=== PATIENT | male | born 1980 | race Caucasian/White ===

== ENCOUNTER → 2020-08-16 10:03 | Outpatient (CLI) | payer OTHER, SELFPAY ==
[2020-08-16 10:44] LABS: Basophils # 0.1 K/mm3 (0-0.2); Basophils % 0.8 % (0.1-2.0); Eosinophils # 0.7 K/mm3 (0.0-0.4); Eosinophils % 7.5 % (0.1-12.0); Hematocrit 35.9 % (42.0-52.0); Hemoglobin 11.5 g/dL (14.1-18.0); Lymphocytes # 2.4 K/mm3 (0.7-4.5); Lymphocytes % 26.1 % (10-50); Mean Corpuscular HGB Conc 32.2 g/dL (31.8-35.4); Mean Corpuscular Volume 77.9 fl (80-94); Mean Platelet Volume 7.4 fl (7.4-10.4); Monocytes # 0.6 K/mm3 (0.1-1.0); Neutrophils # 5.5 K/mm3 (1.8-7.8); Neutrophils % 59.6 % (37.0-80.0); Platelet Count 338 K/mm3 (142-424); Red Blood Count 4.61 M/mm3 (4.60-6.20); Red Cell Distribution Width 14.4 % (11.5-17.5); White Blood Count 9.2 K/mm3 (4.8-10.8)
[2020-08-16 11:15] LABS: Alanine Aminotransferase 31 U/L (12-78); Albumin/Globulin Ratio 1.3 (1.1-1.8); Alkaline Phosphatase 68 U/L (38-126); Anion Gap 12.4 mEq/L (5-15); Aspartate Amino Transferase 27 U/L (17-59); Bilirubin,Total 0.9 mg/dl (0.2-1.3); Blood Urea Nitrogen 15 mg/dl (9-20); Calcium 9.1 mg/dl (8.4-10.2); Carbon Dioxide 31 mmol/L (22.0-30.0); Chloride 96 mmol/L (98-107); Chol/HDL Ratio 3.8 (1-3.5); Cholesterol 152 mg/dl (140-200); Estimated Glomerular Filt Rate 149 ml/min (>60); GFR (African American) 181 ML/MIN (>60); Glucose 187 mg/dl (74-100); HDL Cholesterol 40 mg/dl (40-60); Potassium 4.4 mmoL/L (3.5-5.1); Sodium 135 mmol/L (136-145); Triglycerides 91 mg/dl (30-150); VLDL Cholesterol 18 mg/dL (0-40)
[2020-08-16 11:26] LABS: Direct LDL Cholesterol 83.96 mg/dL (100-129)
[2020-08-16 11:33] LABS: 25-OH Vitamin D, Total 27.4 ng/mL (30-100); T4 (Thyroxine) 6.2 ug/dl (5.53-11.0)
[2020-08-16 11:46] LABS: Thyroid Stimulating Hormone 5.74 uIU/mL (0.465-4.68)
[2020-08-16 15:52] LABS: Hemoglobin A1C 10.4 % (4.0-6.0)
[2020-08-23 16:41] LABS: Testosterone, Total, LC/MS 307.6 ng/dL (264.0-916.0); Testosterone,Free 13.2 pg/mL (6.8-21.5)
== END ==
PROVIDERS: Visit Provider Nurse Practitioner Family
DX: E11.42 Type 2 diabetes mellitus with diabetic polyneuropathy (principal); K59.00 Constipation, unspecified; E66.9 Obesity, unspecified; Z68.41 Body mass index [BMI] 40.0-44.9, adult; Z79.4 Long term (current) use of insulin; Z12.5 Encounter for screening for malignant neoplasm of prostate
CPT/HCPCS: 36415; 80053; 80061; 82306; 83036; 84402; 84403; 84436; 84443; 85025

== ENCOUNTER 2020-09-15 10:42 | Emergency (ER) | payer OTHER, SELFPAY ==
[2020-09-15 10:44] VITALS: BP 152/85; PULSE 101; RESP 18; TEMP 36.9; O2SAT 100; BMI 42.5
[2020-09-15 11:10] LABS: Basophils # 0.1 K/mm3 (0-0.2); Basophils % 0.5 % (0.1-2.0); Eosinophils # 0.6 K/mm3 (0.0-0.4); Eosinophils % 5.4 % (0.1-12.0); Hematocrit 33.1 % (42.0-52.0); Hemoglobin 10.5 g/dL (14.1-18.0); Lymphocytes # 2.7 K/mm3 (0.7-4.5); Lymphocytes % 24.2 % (10-50); Mean Corpuscular HGB Conc 31.7 g/dL (31.8-35.4); Mean Corpuscular Hemoglobin 24.8 pg (27.0-31.2); Mean Corpuscular Volume 78.5 fl (80-94); Mean Platelet Volume 8.8 fl (7.4-10.4); Monocytes # 0.9 K/mm3 (0.1-1.0); Monocytes % 7.7 % (1.7-9.3); Neutrophils % 62.2 % (37.0-80.0); Platelet Count 455 K/mm3 (142-424); Red Blood Count 4.22 M/mm3 (4.60-6.20); Red Cell Distribution Width 15.5 % (11.5-17.5); White Blood Count 11.3 K/mm3 (4.8-10.8)
[2020-09-15 11:13] LABS: POC Glucose,Bedside 74 (70-110)
[2020-09-15 11:15] LABS: Chloride 106 mmol/L (98-107); Potassium 4.5 mmoL/L (3.5-5.1); Sodium 136 mmol/L (136-145)
[2020-09-15 11:18] LABS: Alanine Aminotransferase 34 U/L (12-78); Albumin Level 4.1 g/dl (3.5-5.0); Albumin/Globulin Ratio 1.4 (1.1-1.8); Alkaline Phosphatase 56 U/L (38-126); Anion Gap 11.5 mEq/L (5-15); Aspartate Amino Transferase 41 U/L (17-59); Bilirubin,Total 0.4 mg/dl (0.2-1.3); Blood Urea Nitrogen 14 mg/dl (9-20); Carbon Dioxide 23 mmol/L (22.0-30.0); Creatinine Clearance Estimated 190 mL/min (50-200); Estimated Glomerular Filt Rate 184 ml/min (>60); GFR (African American) 223 ML/MIN (>60); Total Protein,Serum 7.1 g/dl (6.3-8.2)
[2020-09-15 11:20] LABS: Glucose 50 mg/dl (74-100)
--- NOTE | 2020-09-15 11:20 | PC.NURSE ---
critical BG at 50 from Lab. patient given juice and eder crackers at this time
--- NOTE | 2020-09-15 11:24 | PC.NURSE ---
Pt drinking orange juice and eating peanut butter and eder crackers at this time.
[2020-09-15 11:27] LABS: Microscopic, Urine URINE MICROSCOPIC (MICROSCOPIC)
[2020-09-15 11:28] LABS: Appearance,Urine CLEAR (Clear); Bilirubin,Urine Negative (Negative); Blood, Urine Negative (Negative); Color,Urine YELLOW (Yellow); Glucose,Urine (UA) Negative (Negative); Ketones,Urine Negative (Negative); Leukocyte Esterase,Urine Negative (Negative); Nitrate,Urine Negative (Negative); PH,Urine 5.5 (5.0-8.5); Protein,Urine Negative (Negative); Specific Gravity, Urine 1.015 (1.005-1.030); Urobilinogen,Urine 0.2 EU/dl (0.2)
[2020-09-15 11:38] LABS: Squamous Epithelial Cell,Urine Occasional #/hpf (0-5)
--- NOTE | 2020-09-15 12:25 | HMH.EDGENADL ---
ED Disposition Clinical Impression: Hypoglycemia Disposition: Home, Self-Care Condition on Discharge: Good Instructions: DI for Hyperglycemia -- Adult Additional Instructions: Routine home medications as directed. PCP on Thursday. Return to the emergency department for recurrent episodes of hypoglycemia. Referrals: Joss Posada APRN [Primary Care Provider] - 3 days Time of Disposition: 12:29 - Critical Care Critical Care Time: No Attestation: On 09/15/20, the high probability of a clinically significant, sudden or life threatening deterioration of the following system(s) required my full and direct attention, intervention and personal management. The time I documented below is in addition to time spent performing reported procedures but includes the following listed in this critical care notation. Medical Decision Making - Medical Records Medical records reviewed: Yes: I reviewed the patient's medical records. - Mihir Inquiry Pt receiving controlled substance: No Vital Signs: 09/15/20 10:44 Temperature 98.4 F Temperature Source Oral Pulse Rate [Right Radial] 101 H Respiratory Rate 18 Blood Pressure [Right Arm] 152/85 H Blood Pressure Mean [Right Arm] 107 Blood Pressure Source [Right Arm] Automatic Cuff Blood Pressure Position [Right Arm] Sitting 02 Sat by Pulse Oximetry 100 Oxygen Delivery Method Room Air - Lab Data Lab results reviewed: Yes: I reviewed the patient's lab results. Lab Results 09/15/20 11:00: WBC 11.3 H, RBC 4.22 L, Hgb 10.5 L, Hct 33.1 L, MCV 78.5 L, MCH 24.8 L, MCHC 31.7 L, RDW 15.5, Plt Count 455 H, MPV 8.8, Neut % (Auto) 62.2, Lymph % (Auto) 24.2, [place] % (Auto) 7.7, Eos % (Auto) 5.4, Baso % (Auto) 0.5, Neut # (Auto) 7.0, Lymph # (Auto) 2.7, Jasper # (Auto) 0.9, Eos # (Auto) 0.6 H, Baso # (Auto) 0.1 09/15/20 11:00: Sodium 136, Potassium 4.5, Chloride 106, Carbon Dioxide 23, Anion Gap 11.5, BUN 14, Creatinine 0.50 L, Estimated Creat Clear 190, Estimated GFR 184, Est GFR ( Amer) 223, Glucose 50 L, Calcium 8.0 L, Total Bilirubin 0.4, AST 41, ALT 34, Alkaline Phosphatase 56, Total Protein 7.1, Albumin 4.1, Globulin 3.0, Albumin/Globulin Ratio 1.4 09/15/20 11:02: POC Glucose 74 09/15/20 11:20: Urine Color Yellow, Urine Appearance Clear, Urine pH 5.5, Ur Specific [place] 1.015, Urine Protein Negative, Urine Glucose (UA) Negative, Urine Ketones Negative, Urine Blood Negative, Urine Nitrate Negative, Urine Bilirubin Negative, Urine Urobilinogen 0.2, Ur Leukocyte Esterase Negative, Urine RBC None, Urine WBC 3-5, Ur Squamous Epith Cells Occasional, Urine Bacteria None Result diagrams: 09/15/20 11:00 09/15/20 11:00 Medical Decision Narrative: 39yo M evaluated for hypoglycemia. Patient's blood glucose is currently in the 50s. He is tolerating it well. He is eating and drinking trying to improve his blood sugar. We will continue to monitor. Patient reports his blood sugar is now up to 70. He continues to eat peanut butter crackers. Patient's blood glucose is now greater than 90. He feels well. We will continue to monitor without additional p.o. intake to ensure his blood glucose stays at a reasonable level. 30 minutes later the patient's glucose is 100. This is without any additional p.o. intake. He is appropriate for discharge home at this time. General Adult HPI - General Chief complaint: Hyper/Hypoglycemia Stated complaint: low glucose 6+hrs Time Seen by Provider: 09/15/20 10:50 Mode of Arrival: Ambulatory Limitations: No Limitations Description of Symptoms (Recalled from ER Triage Doc. by RN): Pt c/o persistent hypoglycemia x8 hours despite efforts made to raise it - History of Present Illness HPI narrative: 39yo M type I diabetic presents emergency department secondary to hypoglycemia. Patient reports doing his usual insulin regiment last night but woke up early this morning with signs of hypoglycemia. Patient has a [employer] cutaneous meter. He reported his blood sugar wa
[2020-09-15 13:17] VITALS: BP 116/77; PULSE 98; RESP 18; TEMP 36.8; O2SAT 98
== END 2020-09-15 13:22 | disposition home or self-care (01) ==
PROVIDERS: Emergency Provider Family Medicine; PCP Nurse Practitioner Family
DX: E10.649 Type 1 diabetes mellitus with hypoglycemia without coma (principal); F41.8 Other specified anxiety disorders; I10 Essential (primary) hypertension; J45.909 Unspecified asthma, uncomplicated; Z79.899 Other long term (current) drug therapy
CPT/HCPCS: 80053; 81001; 82962; 85025; 99282

== ENCOUNTER → 2020-10-19 09:50 | Outpatient (CLI) | payer SELFPAY ==
--- NOTE | 2020-10-19 10:44 | CT_ITS ---
PROCEDURE: CT HEART W CALCIUM SCORE CLINICAL HISTORY: eval for cad COMPARISON: No exams were available for comparison TECHNIQUE: Axial images obtained with sagittal and coronal reformats. All CT scans at the facility use one or more dose reduction, viz: automated exposure control, ma/kV adjustment per patient size (including targeted exams where dose is matched to indication, i.e. head), or iterative reconstruction technique. FINDINGS: Total coronary artery calcium score is 0. No identifiable calcific atherosclerotic plaque with very low cardiovascular disease risk. Nonspecific four mm nodular opacity in the lingula. Twelve month follow-up suggested. IMPRESSION: No identifiable calcific atherosclerotic plaque with very low cardiovascular disease risk Nonspecific 4 mm nodular opacity of the lingula. Suggest 12 month follow-up Dictated by: Gregory Espino MD 10/22/2020 08:39 Gregory Espino MD in [facility] 10/22/2020 08:39
--- NOTE | 2020-10-19 10:44 | NM_ITS ---
APPROVED REPORT Exam: Nuclear Stress Test Indication: OBESITY, HTN, D.M., HYPERLIPEDEMIA, FM HX, SOB Patient Location: Outpatient Stress Tech: Christina Lara DC Tech:Marilee Vicente, ARRT RT (R)(N)(M) Ht: 5 ft 8 in Wt: 290 lbs HR: 89 bpm BP: 152/86 mmHg BSA: 2.39 m2 BMI: 44.0 History: OBESITY, HTN, D.M., HYPERLIPEDEMIA, FM HX, SOB Procedure: Patient received a 0.4 mg of intravenous Lexiscan, resting heart rate 89 bpm, resting blood pressure 152/86 mmHg, with Lexiscan maximum heart rate achived was 107 bpm which is Less than 85 % of the maximum predicted heart rate and blood pressure was 117/56 mmHg. With Lexiscan, patient denied any complaint of chest pain. Electrocardiogram Resting electrocardiogram showed sinus rhythm, with Lexiscan there is less than 1.[address] segment depression noted from the baseline EKG. The EKG portion of the Lexiscan is nondiagnostic. Cardiac Stress and Resting SPECT Images: Cardiac Stress and Resting SPECT images were obtained using technetium 99m Myoview 31.2 mCi stress and 10.47 mCi at rest. Gated SPECT for analysis of segmental wall motion and calculation of the ejection fraction also done. Prone images were also obtained. Cardiac stress and rest SPECT images show uniform myocardial activity without segmental perfusion abnormality, computer derived ejection fraction is 55% with no regional wall motion abnormality, right ventricle is normal size and contractility. Conclusion: 1. The EKG portion of the Lexiscan is nondiagnostic. 2. No scintigraphic evidence of reversible ischemia seen, computer derived ejection fraction is 55% with no regional wall motion abnormality, right ventricle is normal size and contractility. 3. Normal Lexiscan Myoview study. Electronically signed by : Judd Zavala MD 10/19/2020 19:46:32
== END ==
PROVIDERS: PCP Emergency Medicine; Visit Provider Internal Medicine Cardiovascular Disease
DX: Z13.6 Encounter for screening for cardiovascular disorders (principal)
CPT/HCPCS: 75571; 78452; A9502; J2785

== ENCOUNTER → 2020-10-19 09:59 | Outpatient (CLI) | payer OTHER, SELFPAY ==
--- NOTE | 2020-10-19 | CA_ITS ---
APPROVED REPORT Exam: Exercise Treadmill Technologist: Christina Lara, Ht: 5 ft 8 in Wt: 299 lbs BSA: 2.42 m2 HR: 89 bpm BP: 152/86 mmHg Indications: CAD Medical History Medications: Albuterol, Gabapentin, Insulsin, Lisinopril, Pravastatin. Allergies: Peaches, Green peppers Cardiac Risk Factors: HTN, Hyperlipidemia, Diabetes (insulin), FHX of CAD Stress Test Details Test: LEXISCAN HR Resting HR: 96 bpm Max Heart Rate (APMHR): 179.844184 bpm Max HR Achieved: 114 bpm Target HR (85% APMHR): 152.216124 bpm % of APMHR: 63.69 Recovery HR: 104 bpm BP Resting BP: 152.0/86.0 mmHg Max BP: 117/56 mmHg Recovery BP: 115.0/61.0 mmHg ECG Resting ECG: Sinus rhythm with PVC Clinical Exercise duration: 04:03 min Highest Stage Achieved: Exercise capacity: 1.0 METs Stress ECG Conclusion Patient changes from Jack to Lexiscan due to leg pain. Patient c/o SOB at peak infusion which resolved during recovery. No chest pain. Occ PVC. Less than 1.5mm ST depression. Images to follow. Electronically signed by : Judd Zavala MD 10/19/2020 19:38:49
--- NOTE | 2020-10-19 10:00 | CA_ITS ---
APPROVED REPORT EXAM: Comprehensive 2D, Doppler, and color-flow Echocardiogram Corrugator Supervisor: Isela Khanna RT(R) Ht: 5 ft 8 in Wt: 299lbs BSA: 2.42 BP: 147/82 mmHg Indications: edema, HTN, DM, SOB, hyperlipidemia 2D Dimensions LVOT 2.14 cm (M/F) 1.5-2.5 LA Volume 47.10 mL LA Volume Index 19.46 mL/m2 (M/F) 16-34 M-Mode Dimensions RVDd 3.73 cm (0.9-2.6) LA Diam 3.88 cm (1.9-4.0) LVDd 4.11 cm (3.5-5.7) Ao Diam 2.90 cm (2.0-3.7) LVDs 3.05 cm (3.5-5.7) IVSd 0.93 cm (0.6-1.1) PWd 0.89 cm (0.6-1.1) EF (Teich) 51.30% FS 25.80% EDV (Teich) 74.70 mL ESV (Teich) 36.40 mL LV Diastology E Decel Time 173.00 (160-240 msec) E/A Ratio 1.2 MED E' 16.10 (< 7 cm/sec) E'/MED E' Ratio 7.37 (>14) LAT E' 8.60 (<10 cm/sec) E/LAT E' Ratio 13.80 (>14) Mitral Valve MV E Max Odilon. 119.00 (40-130 cm/s) MV A Velocity 99.00 (40-130 cm/s) E/A Ratio 1.20 MV Decel. Time 173.00 (160-240 ms) MV PHT 51.00 ms Left Ventricle Left atrium is mildly enlarged, left ventricle is normal size, mild concentric left ventricular hypertrophy, visually estimated ejection fraction 55% with no regional wall motion abnormality, diastolic parameters are inconclusive. Right Ventricle Right atrium and right ventricle mildly enlarged with normal contractility. Aortic Valve Aortic valve is grossly normal, there is no aortic stenosis or aortic insufficiency. Mitral Valve Mitral valve is grossly normal, there is trace mitral regurgitation. Tricuspid Valve Tricuspid grossly normal, there is trace tricuspid regurgitation, tricuspid regurgitation jet velocity is inadequate for calculation of the right ventricular systolic pressure. Pulmonic Valve Pulmonic valve is poorly visualized Great Vessels Aortic root is normal size. Is not well-visualized. Pericardium No significant pericardial effusion noted. Conclusion 1. Normal left ventricular size, preserved left ventricular systolic function, visually estimated ejection fraction 55% with no regional wall motion abnormality. Diastolic parameters are inconclusive. 2. Trace mitral and tricuspid regurgitation. 3. No significant pericardial effusion noted. Electronically signed by : Judd Zavala MD 10/19/2020 11:27:37
--- NOTE | 2020-10-19 10:00 | US_ITS ---
APPROVED REPORT Exam Type: Ankle to Brachial Index Ceo And Co Founder: Isela Khanna RT(R) Indications Rest Pain: Bilaterally Redness and edema bilateral LE. Risk Factors Hypertension Hyperlipidemia Obesity Diabetes Pressures/Indices Right Indices Left Indices Brachial 144.00 mmHg Brachial 157.00 mmHg Low Thigh 218.00 mmHg 1.39 Low Thigh 191.00 mmHg 1.22 Calf 188.00 mmHg 1.20 Calf 198.00 mmHg 1.26 Ankle(PT) 0.00 mmHg 0.00 Ankle(PT) 0.00 mmHg 0.00 Ankle(DP) 169.00 mmHg 1.08 Ankle(DP) 0.00 mmHg 0.00 Digit 155.00 mmHg 0.99 Digit 162.00 mmHg 1.03 Findings RT GEORGINA=1.08 LT GEORGINA=1.26 RT TBI=0.99 LT TBI=1.03 Normal waveforms Normal pulses Non compressible vessels seen at the Right PT ankle level, left DP ankle level, and left PT ankle level. Conclusion RT GEORGINA=1.08 LT GEORGINA=1.26 RT TBI=0.99 LT TBI=1.03 Normal waveforms Normal pulses Normal ABIs Non compressible vessels seen at the Right PT ankle level, left DP ankle level, and left PT ankle level. 13 pt difference in arm pressures which may indicate RUE , brachiocephalic, or subclavian stenosis Electronically signed by : Gregory Espino MD 10/23/2020 16:23:06
== END ==
PROVIDERS: PCP Nurse Practitioner Family; Visit Provider Internal Medicine Cardiovascular Disease
DX: R06.09 Other forms of dyspnea (principal); R60.0 Localized edema; I10 Essential (primary) hypertension; E10.59 Type 1 diabetes mellitus with other circulatory complications; E78.5 Hyperlipidemia, unspecified; Z82.49 Family history of ischemic heart disease and other diseases of the circulatory system; Z79.4 Long term (current) use of insulin
CPT/HCPCS: 78452; 93017; 93306; 93923; A9502; J2785

== ENCOUNTER → 2020-10-24 13:41 | Outpatient (CLI) | payer OTHER, SELFPAY | PROVIDERS: Visit Provider Nurse Practitioner Family | DX: N39.0 Urinary tract infection, site not specified (principal) | CPT/HCPCS: 87086 ==

== ENCOUNTER → 2020-10-26 10:09 | Outpatient (CLI) | payer OTHER, SELFPAY ==
[2020-10-26 10:56] LABS: Chloride 101 mmol/L (98-107); Potassium 5.1 mmoL/L (3.5-5.1); Sodium 138 mmol/L (136-145)
[2020-10-26 10:59] LABS: Anion Gap 13.1 mEq/L (5-15); Blood Urea Nitrogen 14 mg/dl (9-20); Carbon Dioxide 29 mmol/L (22.0-30.0); Estimated Glomerular Filt Rate 148 ml/min (>60); GFR (African American) 180 ML/MIN (>60)
[2020-10-26 11:00] LABS: Calcium 8.8 mg/dl (8.4-10.2); Glucose 97 mg/dl (74-100)
[2020-10-26 11:09] LABS: NT Pro Brain Natriuretic Pep. 142 pg/mL (0-125)
== END ==
PROVIDERS: PCP Nurse Practitioner Family; Visit Provider Internal Medicine Cardiovascular Disease
DX: R06.02 Shortness of breath (principal); E10.59 Type 1 diabetes mellitus with other circulatory complications; E78.5 Hyperlipidemia, unspecified; I10 Essential (primary) hypertension; R60.0 Localized edema; Z82.49 Family history of ischemic heart disease and other diseases of the circulatory system; Z79.4 Long term (current) use of insulin
CPT/HCPCS: 36415; 80048; 83880

== ENCOUNTER → 2020-11-02 14:36 | Outpatient (CLI) | payer OTHER, SELFPAY ==
[2020-11-02 15:26] LABS: Amphetamine/Metha Screen,Urine Negative ng/ml (<1000); Benzodiazepines Screen,Urine Negative ng/ml (<200)
[2020-11-02 15:27] LABS: Barbiturates Screen,Urine Negative ng/ml (<200)
[2020-11-02 15:28] LABS: Cannabinoid Screen,Urine Negative ng/ml (<50); Cocaine Screen,Urine Negative ng/ml (<300)
[2020-11-02 15:29] LABS: Methadone Screen,Urine Negative ng/ml (<300)
[2020-11-02 15:30] LABS: Opiate Screen,Urine Negative ng/ml (<300); Phencyclidine Screen,Urine Negative ng/ml (<25)
== END ==
PROVIDERS: Visit Provider Nurse Practitioner Family
DX: G62.9 Polyneuropathy, unspecified (principal)
CPT/HCPCS: 80305

== ENCOUNTER → 2020-11-23 13:37 | Outpatient (CLI) | payer OTHER, SELFPAY | PROVIDERS: PCP Nurse Practitioner Family; Visit Provider Internal Medicine Cardiovascular Disease | DX: R40.0 Somnolence (principal); R06.83 Snoring; G47.30 Sleep apnea, unspecified | CPT/HCPCS: 95806 ==

== ENCOUNTER → 2021-04-17 18:13 | Outpatient (CLI) | payer OTHER, SELFPAY ==
[2021-04-17 15:48] LABS: Basophils # 0.1 K/mm3 (0-0.2); Basophils % 0.9 % (0.1-2.0); Eosinophils # 0.4 K/mm3 (0.0-0.4); Eosinophils % 4.7 % (0.1-12.0); Hemoglobin 11.5 g/dL (14.1-18.0); Lymphocytes % 22.9 % (10-50); Mean Corpuscular HGB Conc 30.3 g/dL (31.8-35.4); Mean Corpuscular Hemoglobin 24.7 pg (27.0-31.2); Mean Corpuscular Volume 81.6 fl (80-94); Mean Platelet Volume 8.6 fl (7.4-10.4); Monocytes # 0.5 K/mm3 (0.1-1.0); Monocytes % 5.4 % (1.7-9.3); Neutrophils # 5.9 K/mm3 (1.8-7.8); Neutrophils % 66.1 % (37.0-80.0); Platelet Count 449 K/mm3 (142-424); Red Blood Count 4.66 M/mm3 (4.60-6.20); Red Cell Distribution Width 16.4 % (11.5-17.5); White Blood Count 8.8 K/mm3 (4.8-10.8)
[2021-04-17 15:54] LABS: Alanine Aminotransferase 37 U/L (12-78); Albumin Level 4.1 g/dl (3.5-5.0); Albumin/Globulin Ratio 1.5 (1.1-1.8); Alkaline Phosphatase 68 U/L (38-126); Anion Gap 16.2 mEq/L (5-15); Aspartate Amino Transferase 34 U/L (17-59); Bilirubin,Total 0.7 mg/dl (0.2-1.3); Blood Urea Nitrogen 20 mg/dl (9-20); Calcium 9.3 mg/dl (8.4-10.2); Carbon Dioxide 30 mmol/L (22.0-30.0); Chloride 94 mmol/L (98-107); Chol/HDL Ratio 3.5 (1-3.5); Cholesterol 148 mg/dl (140-200); Estimated Glomerular Filt Rate 124 ml/min (>60); GFR (African American) 150 ML/MIN (>60); Globulin 2.7 g/dL (1.3-3.2); Glucose 212 mg/dl (74-100); HDL Cholesterol 42 mg/dl (40-60); Potassium 5.2 mmoL/L (3.5-5.1); Sodium 135 mmol/L (136-145); Total Protein,Serum 6.8 g/dl (6.3-8.2); Triglycerides 88 mg/dl (30-150); VLDL Cholesterol 18 mg/dL (0-40)
[2021-04-17 16:05] LABS: Direct LDL Cholesterol 86.97 mg/dL (100-129)
[2021-04-17 16:10] LABS: T4 (Thyroxine) 7.5 ug/dl (5.53-11.0)
[2021-04-17 16:11] LABS: 25-OH Vitamin D, Total 29.3 ng/mL (30-100)
[2021-04-17 16:24] LABS: Thyroid Stimulating Hormone 3.54 uIU/mL (0.465-4.68)
[2021-04-17 16:29] LABS: Hemoglobin A1C 8.9 % (4.0-6.0)
== END ==
PROVIDERS: Visit Provider Nurse Practitioner Family
DX: I10 Essential (primary) hypertension (principal); E10.59 Type 1 diabetes mellitus with other circulatory complications; E78.2 Mixed hyperlipidemia; Z79.4 Long term (current) use of insulin; E55.9 Vitamin D deficiency, unspecified
CPT/HCPCS: 80053; 80061; 82306; 83036; 84436; 84443; 85025

== ENCOUNTER 2021-08-19 14:30 | Emergency (ER) | payer OTHER, SELFPAY ==
[2021-08-19] VITALS (10 sets, daily range): BP systolic 70–112; BP diastolic 49–69; PULSE 85–104; RESP 16; TEMP 36.6–36.8; O2SAT 96–100; BMI 43.7
--- NOTE | 2021-08-19 14:48 | PC.NURSE ---
BANDAR VASQUEZ at
--- NOTE | 2021-08-19 14:48 | HMH.EDDIZZ ---
ED Disposition Clinical Impression: Dehydration Disposition: Home, Self-Care Condition on Discharge: Fair Instructions: DI for Dehydration -- Adult Additional Instructions: Resume your original dose of spironolactone before your increase. Follow-up with your primary care doctor this week to discuss the dosing of your diuretics. Today you were dehydrated and your blood pressure was low. Turn to the emergency department if you feel worse in any way. Plenty of fluids for the next day or 2. Referrals: Latoya Lowe APRN [Primary Care Provider] - - Critical Care Critical Care Time: No Attestation: On , the high probability of a clinically significant, sudden or life threatening deterioration of the following system(s) required my full and direct attention, intervention and personal management. The time I documented below is in addition to time spent performing reported procedures but includes the following listed in this critical care notation. Medical Decision Making - Mihir Inquiry Pt receiving controlled substance: No Vital Signs: 08/19/21 14:31 08/19/21 14:44 08/19/21 15:03 Temperature 98.2 F Temperature Source Oral Pulse Rate 103 H 90 Pulse Rate [Radial] 104 H Respiratory Rate 16 Blood Pressure 85/56 L 78/51 L Blood Pressure [Right Arm] 71/49 L Blood Pressure Mean [Right Arm] 56 Blood Pressure Position Blood Pressure Position [Right Arm] Sitting 02 Sat by Pulse Oximetry 98 100 Oxygen Delivery Method Room Air 08/19/21 15:10 08/19/21 15:19 08/19/21 15:26 Temperature Temperature Source Pulse Rate 92 H 93 H Pulse Rate [Radial] Respiratory Rate 16 Blood Pressure 70/50 L 75/52 L 81/52 L Blood Pressure [Right Arm] Blood Pressure Mean [Right Arm] Blood Pressure Position Blood Pressure Position [Right Arm] 02 Sat by Pulse Oximetry 98 Oxygen Delivery Method Room Air 08/19/21 15:30 08/19/21 15:35 08/19/21 15:40 Temperature Temperature Source Pulse Rate 95 H 91 H 85 Pulse Rate [Radial] Respiratory Rate 16 16 16 Blood Pressure 88/53 L 88/54 L 101/61 L Blood Pressure [Right Arm] Blood Pressure Mean [Right Arm] Blood Pressure Position Sitting Sitting Blood Pressure Position [Right Arm] 02 Sat by Pulse Oximetry 96 96 96 Oxygen Delivery Method Room Air - Lab Data Lab results reviewed: Yes: I reviewed the patient's lab results. Lab Results 07/04/22 15:01: WBC 13.5 H, RBC 5.00, Hgb 11.8 L, Hct 39.9 L, MCV 79.8 L, MCH 23.5 L, MCHC 29.5 L, RDW 15.5, Plt Count 633 H, MPV 8.3, Neut % (Auto) 69.5, Lymph % (Auto) 20.0, [place] % (Auto) 6.0, Eos % (Auto) 3.0, Baso % (Auto) 1.5, Neut # (Auto) 9.4 H, Lymph # (Auto) 2.7, [place] # (Auto) 0.8, Eos # (Auto) 0.4, Baso # (Auto) 0.2 08/19/21 15:01: Sodium 135 L, Potassium 4.5, Chloride 99, Carbon Dioxide 24, Anion Gap 16.5 H, BUN 38 H, Creatinine 1.40 H, Estimated Creat Clear 67, Estimated GFR 56 L, Est GFR ( Amer) 68, Glucose 113 H, Calcium 9.6, Total Bilirubin 1.2, AST 49, ALT 43, Alkaline Phosphatase 62, Total Protein 8.1, Albumin 4.5, Globulin 3.6 H, Albumin/Globulin Ratio 1.3 Result diagrams: 08/19/21 15:01 08/19/21 15:01 Orders (Tests/Meds): ED MEDICATIONS Discontinued Medications Generic Name Dose Route Start Last Admin Trade Name Freq PRN Reason Stop Dose Admin Sodium Chloride 1,000 mls @ 999 mls/hr 08/19/21 15:00 08/19/21 15:16 Sod Chlor 0.9% 1000ml Bag IV 08/19/21 16:00 999 mls/hr .Q1H1M ABAD Administration - Reevaluation(s) Time: 16:09 Reevaluation #1: The patient feels better after 800 mL of normal saline. His blood pressure has risen to 108 systolic. The patient is sitting up. He feels ready to be discharged. Medical Decision Narrative: The patient's work-up in the emergency department revealed a mildly elevated white blood cell count without a left shift. Patient's platelet count is also elevated. These are nonspecific findings. The yulia
[2021-08-19 15:14] LABS: Basophils # 0.2 K/mm3 (0-0.2); Basophils % 1.5 % (0.1-2.0); Eosinophils # 0.4 K/mm3 (0.0-0.4); Hematocrit 39.9 % (42.0-52.0); Hemoglobin 11.8 g/dL (14.1-18.0); Lymphocytes # 2.7 K/mm3 (0.7-4.5); Mean Corpuscular HGB Conc 29.5 g/dL (31.8-35.4); Mean Corpuscular Hemoglobin 23.5 pg (27.0-31.2); Mean Corpuscular Volume 79.8 fl (80-94); Mean Platelet Volume 8.3 fl (7.4-10.4); Monocytes # 0.8 K/mm3 (0.1-1.0); Neutrophils # 9.4 K/mm3 (1.8-7.8); Neutrophils % 69.5 % (37.0-80.0); Platelet Count 633 K/mm3 (142-424); Red Cell Distribution Width 15.5 % (11.5-17.5); White Blood Count 13.5 K/mm3 (4.8-10.8)
--- NOTE | 2021-08-19 15:31 | PC.NURSE ---
BANDAR VASQUEZ at
[2021-08-19 15:32] LABS: Chloride 99 mmol/L (98-107); Sodium 135 mmol/L (136-145)
[2021-08-19 15:33] LABS: Potassium 4.5 mmoL/L (3.5-5.1)
[2021-08-19 15:35] LABS: Alanine Aminotransferase 43 U/L (12-78); Albumin Level 4.5 g/dl (3.5-5.0); Albumin/Globulin Ratio 1.3 (1.1-1.8); Alkaline Phosphatase 62 U/L (38-126); Anion Gap 16.5 mEq/L (5-15); Aspartate Amino Transferase 49 U/L (17-59); Bilirubin,Total 1.2 mg/dl (0.2-1.3); Blood Urea Nitrogen 38 mg/dl (9-20); Carbon Dioxide 24 mmol/L (22.0-30.0); Creatinine Clearance Estimated 67 mL/min (50-200); Estimated Glomerular Filt Rate 56 ml/min (>60); GFR (African American) 68 ML/MIN (>60); Globulin 3.6 g/dL (1.3-3.2); Total Protein,Serum 8.1 g/dl (6.3-8.2)
[2021-08-19 15:36] LABS: Calcium 9.6 mg/dl (8.4-10.2); Glucose 113 mg/dl (74-100)
--- NOTE | 2021-08-19 16:00 | PC.NURSE ---
at bedside updated on plan of care
== END 2021-08-19 17:01 | disposition home or self-care (01) ==
PROVIDERS: Emergency Provider Emergency Medicine; PCP Nurse Practitioner Family
DX: E86.0 Dehydration (principal)
CPT/HCPCS: 80053; 85025; 96360; 99284

== ENCOUNTER 2022-09-21 08:25 | Emergency (ER) | payer OTHER, SELFPAY ==
[2022-09-21 08:40] VITALS: BP 127/70; PULSE 83; RESP 18; TEMP 36.9; O2SAT 98; BMI 44.8
--- NOTE | 2022-09-21 09:04 | EXP.UTC ---
Discharge Plan Disposition Patient Disposition: Home, Self-Care Condition: Good Prescriptions Prescriptions: New valacyclovir 1 gram tablet 1,000 mg PO Q8H 7 Days Qty: 21 0RF No Action (DME) 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 meter,continuous Misc See Rx Instructions .MEDSUPPLY Qty: 1 2RF Rx Instructions: As directed aspirin [Adult Low Dose Aspirin] 81 mg tablet,delayed release (DR/EC) 81 mg PO DAILY Qty: 30 5RF spironolactone 25 mg tablet 25 mg PO Q OTHER DAY Qty: 30 5RF albuterol sulfate [ProAir HFA] 90 mcg/actuation HFA aerosol inhaler See Rx Instructions .ROUTE .COMPLEX Qty: 9 0RF Dose Instruction: INHALE 2 PUFFS BY MOUTH EVERY 4 TO 6 HOURS NEEDED FOR BRONCHOSPASM Rx Instructions: INHALE 2 PUFFS BY MOUTH EVERY 4 TO 6 HOURS NEEDED FOR BRONCHOSPASM pramipexole 0.125 mg tablet 0.125 mg PO DAILY Qty: 30 2RF insulin glargine 100 unit/mL solution 25 unit SQ DAILY 30 Days Qty: 7.5 2RF pravastatin 20 mg tablet See Rx Instructions .ROUTE .COMPLEX Qty: 90 0RF Dose Instruction: Take 1 tablet by mouth once daily Rx Instructions: Take 1 tablet by mouth once daily bisoprolol fumarate 5 mg tablet 5 mg PO DAILY Qty: 30 2RF (DME) insulin syringe-needle U-100 0.3 mL 30 syringe See Rx Instructions .Route Qty: 100 3RF Rx Instructions: As directed (DME) Dexcom G6 Transmitter Device See Rx Instructions .ROUTE .COMPLEX Qty: 1 2RF Dose Instruction: USE DIRECTED TO TEST BLOOD GLUCOSE LEVEL Rx Instructions: USE DIRECTED TO TEST BLOOD GLUCOSE LEVEL (DME) Dexcom G6 Sensor Device See Rx Instructions .ROUTE .COMPLEX Qty: 3 2RF Dose Instruction: USE DIRECTED TO TEST BLOOD GLUCOSE LEVEL Rx Instructions: USE DIRECTED TO TEST BLOOD GLUCOSE LEVEL insulin lispro 100 unit/mL solution See Rx Instructions .ROUTE .COMPLEX Qty: 30 3RF Dose Instruction: USE DIRECTED PER SLIDING SCALE IN OMNIPOD MAX 100 UNITS PER DAY Rx Instructions: USE DIRECTED PER SLIDING SCALE IN OMNIPOD MAX 100 UNITS PER DAY Referrals Follow up/Referrals: Nancy Zamora PA [Primary Care Provider] - See instructions Activity Restrictions/Add. Instructions Additional Instructions/Restrictions: Take medication as prescribed Cover areas on leg while at work Follow up with your Family Doctor if no improvement or any worsening of symptoms Return if needed Straight to ER if any life threatening symptoms Clinical Impressions Clinical Impression: Shingles Qualifiers: Herpes zoster complications: without complications Qualified Code(s): B02.9 - Zoster without complications Instructions Patient Instructions: DI for Shingles, Shingles, Valacyclovir Discharge ED Provider: Christina Warren [facility] General Stated complaint: left leg rash and swelling, no accident Mode of Arrival: Ambulatory Source of Information: Patient Limitations: No Limitations Time Seen by Provider: 09/21/22 09:04 Description of Symptoms (Recalled from Triage Doc. by RN): PATIENT C/O BLISTER-TYPE RASH TO LEFT LEG THAT IS PAINFUL AND ADHIKARI X 4 DAYS HEENT Symptoms (Recalled from RN notes): No Resp Symptoms (Recalled from RN notes): No Skin Symptoms (Recalled from RN notes): Yes MS Symptoms (Recalled from RN notes): No Functional Status (Recalled from RN notes): WNL History of Present Illness Provider Complaint: Patient states that he has been having blister like rash on his left upper leg that has continued to spread over the last 4 days State that it itches and adhikari and feels like it is on his nerves in his leg States that last night it felt sore and hurt so today he came in to get it checked Related Data Previous Rx's Medication Instructions Recorded 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 meter,continuous #1 ea 09/18/21 ProAir HFA 90 mcg/actuation See Rx Instructions .Route 12/16/21 aerosol inhaler (albuterol sulfate) .COMPLEX #9 grams aspirin 81 mg tablet,delayed 81
[2022-09-21 09:08] VITALS: BP 127/70; PULSE 83; RESP 18; TEMP 36.9; O2SAT 98
== END 2022-09-21 09:18 | disposition home or self-care (01) ==
PROVIDERS: Emergency Provider Nurse Practitioner; PCP Student in an Organized Health Care Education/Training Program
DX: B02.9 Zoster without complications (principal); E11.40 Type 2 diabetes mellitus with diabetic neuropathy, unspecified; F84.0 Autistic disorder; Z79.4 Long term (current) use of insulin
CPT/HCPCS: 99204; 99212; G0463

== ENCOUNTER 2023-04-10 20:18 | Outpatient (CLI) | payer OTHER, SELFPAY | END 2023-04-10 23:59 | LOC: LAB.DROPOF 20:19 | PROVIDERS: PCP Student in an Organized Health Care Education/Training Program; Visit Provider Student in an Organized Health Care Education/Training Program | DX: J02.9 Acute pharyngitis, unspecified (principal); B95.1 Streptococcus, group B, as the cause of diseases classified elsewhere | CPT/HCPCS: 87070 ==

== ENCOUNTER 2023-08-04 18:00 | Outpatient (CLI) | payer OTHER, SELFPAY ==
[2023-08-04 19:34] LABS: Basophils # 0.1 K/mm3 (0-0.2); Basophils % 0.6 % (0.1-2.0); Eosinophils # 0.2 K/mm3 (0.0-0.4); Eosinophils % 2.1 % (0.1-12.0); Hematocrit 35.5 % (42.0-52.0); Hemoglobin 10.4 g/dL (14.1-18.0); Lymphocytes # 2.4 K/mm3 (0.7-4.5); Lymphocytes % 26.1 % (10-50); Mean Corpuscular HGB Conc 29.3 g/dL (31.8-35.4); Mean Corpuscular Hemoglobin 21.7 pg (27.0-31.2); Mean Corpuscular Volume 73.9 fl (80-94); Mean Platelet Volume 10.4 fl (7.4-10.4); Monocytes # 0.6 K/mm3 (0.1-1.0); Monocytes % 6.9 % (1.7-9.3); Neutrophils # 5.8 K/mm3 (1.8-7.8); Neutrophils % 64.3 % (37.0-80.0); Platelet Count 498 K/mm3 (142-424); Red Cell Distribution Width 17.6 % (11.5-17.5)
[2023-08-04 20:10] LABS: Alanine Aminotransferase 41 U/L (12-78); Albumin Level 3.8 g/dl (3.5-5.0); Albumin/Globulin Ratio 1.4 (1.1-1.8); Alkaline Phosphatase 66 U/L (38-126); Anion Gap 14.1 mEq/L (5-15); Aspartate Amino Transferase 35 U/L (17-59); Bilirubin,Total 0.7 mg/dl (0.2-1.3); Blood Urea Nitrogen 22 mg/dl (9-20); Calcium 9.2 mg/dl (8.4-10.2); Carbon Dioxide 27 mmol/L (22.0-30.0); Chloride 96 mmol/L (98-107); Chol/HDL Ratio 4.9 (1-3.5); Cholesterol 165 mg/dl (140-200); Estimated Glomerular Filt Rate 106 ml/min (>60); GFR (African American) 128 ML/MIN (>60); Globulin 2.7 g/dL (1.3-3.2); Glucose 202 mg/dl (74-100); HDL Cholesterol 34 mg/dl (40-60); Potassium 5.1 mmoL/L (3.5-5.1); Sodium 132 mmol/L (136-145); Total Protein,Serum 6.5 g/dl (6.3-8.2); Triglycerides 162 mg/dl (30-150); VLDL Cholesterol 32 mg/dL (0-40)
[2023-08-04 20:21] LABS: Direct LDL Cholesterol 109.35 mg/dL (100-129)
[2023-08-04 20:27] LABS: 25-OH Vitamin D, Total 29.3 ng/mL (30-100)
[2023-08-04 20:40] LABS: Thyroid Stimulating Hormone 3.36 uIU/mL (0.465-4.68)
[2023-08-04 20:55] LABS: Iron 37 ug/dL (49-181)
[2023-08-04 21:04] LABS: Total Iron Binding Capacity 368 ug/dL (261-462)
[2023-08-04 21:23] LABS: Vitamin B12 368 pg/mL (239-931)
[2023-08-04 21:31] LABS: Ferritin 3.95 ng/ml (17.9-464)
== END 2023-08-04 23:59 | disposition home or self-care (01) ==
LOC: LAB.DROPOF 08-05 12:33
PROVIDERS: PCP Student in an Organized Health Care Education/Training Program; Visit Provider Student in an Organized Health Care Education/Training Program
DX: E55.9 Vitamin D deficiency, unspecified (principal); R42 Dizziness and giddiness; E10.59 Type 1 diabetes mellitus with other circulatory complications; Z79.4 Long term (current) use of insulin; E78.5 Hyperlipidemia, unspecified; R20.0 Anesthesia of skin; R20.2 Paresthesia of skin; Z82.49 Family history of ischemic heart disease and other diseases of the circulatory system
CPT/HCPCS: 80050; 80053; 80061; 81241; 82306; 82607; 82728; 82746; 83036; 83540; 83550; 84443; 85025; 85220

== ENCOUNTER 2023-08-11 12:23 | Outpatient (CLI) | payer OTHER, SELFPAY ==
[2023-08-13 10:15] LABS: Factor V Activity 136 % (70-150)
== END 2023-08-11 23:59 | disposition home or self-care (01) ==
LOC: LAB.DROPOF 08-17 12:24
PROVIDERS: PCP Student in an Organized Health Care Education/Training Program; Visit Provider Student in an Organized Health Care Education/Training Program
DX: R20.0 Anesthesia of skin (principal); M79.632 Pain in left forearm; Z82.49 Family history of ischemic heart disease and other diseases of the circulatory system
CPT/HCPCS: 36415; 81241; 85220

== ENCOUNTER 2024-04-19 08:25 | Outpatient (CLI) | payer OTHER, SELFPAY ==
[2024-04-19 08:33] LABS: Microscopic, Urine URINE MICROSCOPIC (MICROSCOPIC)
[2024-04-19 09:20] LABS: Appearance,Urine CLEAR (Clear); Bilirubin,Urine Negative (Negative); Blood, Urine Negative (Negative); Color,Urine YELLOW (Yellow); Glucose,Urine (UA) Negative (Negative); Ketones,Urine Negative (Negative); Leukocyte Esterase,Urine Negative (Negative); Nitrate,Urine Negative (Negative); Protein,Urine Negative (Negative); Urobilinogen,Urine 0.2 EU/dl (0.2)
[2024-04-19 09:34] LABS: Basophils % 0.4 % (0.1-2.0); Eosinophils # 0.3 K/mm3 (0.0-0.4); Eosinophils % 2.6 % (0.1-12.0); Hematocrit 39.2 % (42.0-52.0); Lymphocytes # 2.4 K/mm3 (0.7-4.5); Lymphocytes % 24.5 % (10-50); Mean Corpuscular HGB Conc 30.6 g/dL (31.8-35.4); Mean Corpuscular Hemoglobin 25.9 pg (27.0-31.2); Mean Corpuscular Volume 84.7 fl (80-94); Monocytes # 0.8 K/mm3 (0.1-1.0); Monocytes % 7.9 % (1.7-9.3); Neutrophils # 6.3 K/mm3 (1.8-7.8); Neutrophils % 64.3 % (37.0-80.0); Platelet Count 318 K/mm3 (142-424); Red Blood Count 4.63 M/mm3 (4.60-6.20); Red Cell Distribution Width 14.6 % (11.5-17.5); White Blood Count 9.8 K/mm3 (4.8-10.8)
[2024-04-19 09:51] LABS: Chloride 100 mmol/L (98-107)
[2024-04-19 09:52] LABS: Potassium 4.8 mmoL/L (3.5-5.1)
[2024-04-19 09:54] LABS: Alanine Aminotransferase 47 U/L (12-78); Alkaline Phosphatase 71 U/L (38-126); Aspartate Amino Transferase 36 U/L (17-59); Bilirubin,Total 0.4 mg/dl (0.2-1.3); Blood Urea Nitrogen 19 mg/dl (9-20); Carbon Dioxide 30 mmol/L (22.0-30.0); Cholesterol 128 mg/dl (140-200); Estimated Glomerular Filt Rate 105 ml/min (>60); GFR (African American) 127 ML/MIN (>60); Total Protein,Serum 6.3 g/dl (6.3-8.2); Triglycerides 116 mg/dl (30-150); VLDL Cholesterol 23 mg/dL (0-40)
[2024-04-19 09:55] LABS: Chol/HDL Ratio 4.4 (1-3.5); Glucose 164 mg/dl (74-100); HDL Cholesterol 29 mg/dl (40-60); Iron 60 ug/dL (49-181)
[2024-04-19 10:07] LABS: Direct LDL Cholesterol 80.39 mg/dL (100-129)
[2024-04-19 10:10] LABS: Free T4 (Free Thyroxine) 0.99 ng/dl (0.78-2.19)
[2024-04-19 10:11] LABS: Total Iron Binding Capacity 415 ug/dL (261-462)
[2024-04-19 10:26] LABS: Thyroid Stimulating Hormone 2.86 uIU/mL (0.465-4.68)
[2024-04-19 10:30] LABS: Ferritin 5.86 ng/ml (17.9-464)
[2024-04-19 10:34] LABS: Creatinine,Urine Random 87 mg/dL (Not Estab.); HIV Combo NEGATIVE (Negative); Total Protein,Urine Random < 5.0 mg/dL (0.0-12.0)
[2024-04-19 10:36] LABS: Microalbumin/Creatinine Ratio 18.7
[2024-04-19 10:41] LABS: 25-OH Vitamin D, Total 41.1 ng/mL (30-100); Hepatitis C Ab Qual. W/ RFX NEGATIVE (Negative)
[2024-04-19 10:47] LABS: Bacteria,Urine Trace /lpf; Other Sediment,Urine SEE COMMEN #/Hpf; Squamous Epithelial Cell,Urine Occasional #/hpf (0-5); WBC,Urine Occasional #/hpf (0-3)
[2024-04-19 11:23] LABS: Vitamin B12 498 pg/mL (239-931)
[2024-04-19 11:43] LABS: Albumin Level 4.1 g/dl (3.5-5.0); Albumin/Globulin Ratio 1.9 (1.1-1.8); Anion Gap 9.8 mEq/L (5-15); Globulin 2.2 g/dL (1.3-3.2); Sodium 135 mmol/L (136-145)
== END 2024-04-19 23:59 | disposition home or self-care (01) ==
LOC: LAB 08:26
PROVIDERS: PCP Nurse Practitioner Family; Visit Provider Nurse Practitioner Family
DX: D50.9 Iron deficiency anemia, unspecified (principal); E10.59 Type 1 diabetes mellitus with other circulatory complications; Z68.42 Body mass index [BMI] 45.0-49.9, adult; E78.2 Mixed hyperlipidemia; I10 Essential (primary) hypertension; G62.9 Polyneuropathy, unspecified; E55.9 Vitamin D deficiency, unspecified; R53.83 Other fatigue; Z11.4 Encounter for screening for human immunodeficiency virus [HIV]; Z11.59 Encounter for screening for other viral diseases
CPT/HCPCS: 36415; 80053; 80061; 81001; 82043; 82306; 82570; 82607; 82728; 83036; 83540; 83550; 84156; 84439; 84443; 85025; 86803; 87086; 87389

== ENCOUNTER 2024-04-26 10:02 | Outpatient (CLI) | payer OTHER, SELFPAY ==
[2024-04-27 11:15] LABS: Testosterone,Total 163 ng/dL (264-916)
[2024-05-03 19:56] LABS: Testosterone,Free 5.2 pg/mL (6.8-21.5)
== END 2024-04-26 23:59 | disposition home or self-care (01) ==
LOC: LAB 10:03
PROVIDERS: PCP Nurse Practitioner Family; Visit Provider Nurse Practitioner Family
DX: R53.83 Other fatigue (principal)
CPT/HCPCS: 36415; 84402; 84403

== ENCOUNTER 2024-06-06 13:49 | Outpatient (CLI) | payer OTHER, SELFPAY ==
[2024-06-06 15:43] LABS: Chloride 99 mmol/L (98-107)
[2024-06-06 15:44] LABS: Albumin Level 3.4 g/dl (3.5-5.0); Sodium 137 mmol/L (136-145)
[2024-06-06 15:46] LABS: Blood Urea Nitrogen 21 mg/dl (9-20); Estimated Glomerular Filt Rate 123 ml/min (>60); GFR (African American) 148 ML/MIN (>60)
[2024-06-06 15:47] LABS: Alanine Aminotransferase 39 U/L (12-78); Albumin/Globulin Ratio 1.2 (1.1-1.8); Alkaline Phosphatase 71 U/L (38-126); Aspartate Amino Transferase 33 U/L (17-59); Bilirubin,Total 0.6 mg/dl (0.2-1.3); Calcium 8.9 mg/dl (8.4-10.2); Carbon Dioxide 32 mmol/L (22.0-30.0); Globulin 2.8 g/dL (1.3-3.2); Glucose 163 mg/dl (74-100); Total Protein,Serum 6.2 g/dl (6.3-8.2)
== END 2024-06-06 23:59 | disposition home or self-care (01) ==
LOC: LAB 13:49
PROVIDERS: PCP Nurse Practitioner Family; Visit Provider Nurse Practitioner Family
DX: R60.9 Edema, unspecified (principal)
CPT/HCPCS: 36415; 80053

== ENCOUNTER 2024-06-07 08:51 | Outpatient (CLI) | payer OTHER, SELFPAY ==
--- NOTE | 2024-06-07 08:53 | CA_ITS ---
APPROVED REPORT EXAM: Comprehensive 2D, Doppler, and color-flow Echocardiogram Television Presenter: Kyara Silveira RVT Ht: 5 ft 8 in Wt: 305lbs BSA: 2.44 BP: 138/78 mmHg Indications: EDEMA,HTN,DM,HLD TDS/LIMITED STUDY R/T PT HAS BROKEN LEFT ELBOW UNABLE TO LAY FLAT OR ROLL ON LEFT SIDE 2D Dimensions Left Atrium 3.91 cm M: 3.0 - 4.0 LA Volume 36.50 mL RVID Base (AP4) 3.27 cm (M/F) 2.5-4.1 LA Volume Index 14.90 mL/m2 (M/F) 16-34 LVOT 2.48 cm (M/F) 1.5-2.5 EF AP4 54.60 % GL Strain -24.5 % M-Mode Dimensions RVDd 2.81 cm (0.9-2.6) LVDd 6.12 cm (3.5-5.7) Ao Diam 3.52 cm (2.0-3.7) LVDs 4.33 cm (3.5-5.7) IVSd 0.58 cm (0.6-1.1) PWd 0.71 cm (0.6-1.1) EF (Teich) 55.20% FS 29.20% EDV (Teich) 188.30 mL TAPSE 2.10 (<1.7) ESV (Teich) 84.40 mL LV Diastology E Decel Time 150 (160-240 msec) E/A Ratio 1.3 MED E' 6.2 (>= 7 cm/sec) E'/MED E' Ratio 16.15 (<= 14) LAT E' 7.6 (>= 10 cm/sec) E/LAT E' Ratio 13.17 (<= 14) Aortic Valve LVOT Max 84.0 (70-110 cm/s) ISIAH Index 1.18 cm2/m2 LVOT VTI 14.53 cm AoV Peak Odilon. 123.0 (50-130 cm/s) AO Peak GR. 8.30 mmHg AO Mean GR. 3.70 (<5 mmHg) AO VTI 24.3 (18-25 cm) ISIAH (VTI) 2.89 (2.5-4.5 cm2) Mitral Valve MV E Max Odilon. 100.0 (40-130 cm/s) MV A Velocity 76.0 (40-130 cm/s) E/A Ratio 1.31 MV Decel. Time 150 (160-240 ms) Tricuspid Valve TR P. Velocity 413.00 cm/s RAP Estimate 10.00 mmHg RVSP 78.30 mmHg Left Ventricle The left ventricle is normal size. The left ventricular systolic function is normal. The left ventricular ejection fraction is within the normal range. There is increased LV wall thickness. There is normal LV segmental wall motion. The left ventricular diastolic function is normal. LVEF is 55%. Right Ventricle The right ventricle is normal size. The right ventricular systolic function is normal. Atria The left atrium size is normal. The right atrium size is normal. There is no Doppler evidence of interatrial shunt. Aortic Valve The aortic valve opens well. There is no aortic valvular stenosis. Trace aortic regurgitation. Mitral Valve The mitral valve is normal in structure. No evidence of mitral valve stenosis. Mild mitral regurgitation. Tricuspid Valve Tricuspid valve is grossly normal in structure and function. Trace tricuspid regurgitation. There is insufficient TR jet to estimate RVSP. Pulmonic Valve The pulmonary valve is normal in structure. Please pulmonic regurgitation. Great Vessels The aortic root is normal in size. IVC is normal in size and collapses >50% with inspiration. Pericardium There is no pericardial effusion. Other Information Study Quality: Fair Conclusion Normal biventricular systolic function. Mild MR. Electronically signed by : Bre Willams MD 06/07/2024 11:30:59
== END 2024-06-07 23:59 | disposition home or self-care (01) ==
LOC: RT 08:51
PROVIDERS: PCP Nurse Practitioner Family; Visit Provider Nurse Practitioner Family
DX: I34.0 Nonrheumatic mitral (valve) insufficiency (principal); R60.9 Edema, unspecified
CPT/HCPCS: 93306

== ENCOUNTER 2024-06-09 10:54 | Outpatient (CLI) | payer OTHER, SELFPAY ==
--- OUTSIDE RECORDS SUMMARY | 2024-06-09 10:57 | XMS_ITS | Continuity of Care Document ---
Author Organization [facility]. If a dditional information is needed, contact Health Information Management at [phone] [address] [place] [address] Phone Care Team Providers Care Escort Vehicle Driver Name Role Phone Unavailable Unavailable Unavailable Unavailable Unavailable Unavailable Unavailable Unavailable Unavailable Unavailable Unavailable Unavailable Unavailable Unavailable Unavailable Problems Fracture of olecranon Onset:26-May-2024 Roxanna Rios MD Status:Acute Allergies and Adverse Reactions No Known Allergies(Allergy) Onset: 26-May-2024 Medications acetaminophen 325 MG Oral Ta blet;650 MG X1ED Quantity:2 Roxanna Rios MD Start:15-Wfk-3899Mmv:2024 ibuprofen 600 MG Oral Tablet ;600 MG X1ED Quantity:1 Roxanna Rios MD Start:13-Xfy-4219Xhq:2024 Procedures Elbow Minimum 3 View LeftResult:[place] [address] Diagnostic Imaging ReportPatient Name: SHERRIE BAUGH Acct: [id number]: 1980 Age: 43 Sex: M MR#: [id number] Date/Time: 05/26/24 0555 Admit Date/Time:Patient Status: PRE ER Ordering Physician: Ld Russell [facility] Attending Physician:Accession Number(s): [id number](s): Radiology XR Elbow minimum 3 View LtCPT Code(s): 30664BAEAIMDD INDICATION: elbow pain TECHNIQUE: XR Elbow minimum [...] MD in OV>05/26/24615 Thank you for choosing [facility]'s Imaging Services Dictated By: Scottie Hernandez MDDictated Date/Time: 05/26/24615Transcribed By: Scottie Hernandez MDPatient Name: SHERRIE BAUGH Acct: [id number] Unit: [id number] Page 1Transcribed Date/Time: 05/26/24615Technologist: Ana Laura Ramon To: Report ID: [id number] -End of Report-Patient Name: SHERRIE BAUGH Acct: [id number] Unit: [id number] Page 2 Date:26-May-2024 Status:Completed Vital Signs 26-May-2024 06:31 BP Arkiggms896wt[Hg] BP Mswgtofnv29ep[Hg] 26-May-2024 06:25 O2 SAT98% Pulse86 26-May-2024 06:20 O2 SAT98% Pulse86 26-May-2024 06:15 BP Ntdkkgod577xn[Hg] BP Uumqfftfv19we[Hg] 26-May-2024 06:15 O2 SAT98% Pulse85 26-May-2024 06:10 O2 SAT98% Pulse84 26-May-2024 06:04 Temp36.7c 26-May-2024 06:00 BP Vsdeqrko660hh[Hg] BP Vqactxqjw74pi[Hg] 26-May-2024 06:00 O2 SAT97% Pulse78 26-May-2024 05:50 O2 SAT97% Pulse82 26-May-2024 05:45 BP Olndymir547oi[Hg] BP Mfengouka57dg[Hg] 26-May-2024 05:45 O2 SAT97% Pulse81 26-May-2024 05:40 O2 SAT97% Pulse82 26-May-2024 05:33 O2 MVT038% 26-May-2024 05:33 BMI44.2cm Temp36.7c O2 AOZ538% Pulse84 Respiratory Rate20 BP Wdfrrhal267wh[Hg] BP Ozlshjgos15jf[Hg] Height5.0272809[ft_us] Qmzwxf770.53907ro 26-May-2024 05:30 BP Odcxobdr015ig[Hg] BP Qqysilxsv41od[Hg] 26-May-2024 05:30 O2 SAT99% Pulse82 26-May-2024 05:27 O2 SAT99% Pulse88 26-May-2024 05:26 O2 BDL445% Pulse81 Encounters Emergency Encounter Reason:FALL, POSS LOC, ASPIRIN Encounter Diagnosis:ESSENTIAL (PRIMARY) HYPERTENSION,RECYCLER (CURRENT) USE OF ASPIRIN,STRIKING AGAINST OTH OBJECT W SUBSEQUENT FALL, INIT ENCNTR,DISP FX OF OLECRAN PRO W/O INTARTIC EXTN LEFT ULNA, INIT 26-May-2024 05:16Ue99-Ret-0835 07:05 Sanjay Gentile DO (Attending) [place] Discharge Disposition:Discharged to home or self care (routine discharge) ? ? ? Roxanna Rios MD-26-May-2024 [place], [place] [address]Phone: BH PHYSICIAN RECORDPatient Name: SHERRIE BAUGHDOB: 1980 Age: 43 Sex: MAcct: [id number] MR#: [id number]: Author: Blanca Mcknight MDPatient Status: [facility] 05/26/24Report Date/Time: 05/26/24 0541 Report Status: SignedReport#: [id number]<Blanca Mcknight - Last Filed: 05/26/24 06:12>HPI-General Illness- [...] resolved. He feel comfortable [facility].ROS[Constitutional: Negative except as documented in HPI.Eyes: [...] signs reviewed ]Patient Name: SHERRIE BAUGH Acct: [id number] Unit: [id number] Page 1[Nursing notes reviewed and I agree]PHYSICAL [...] consciousness, left elbow pain. Patient is CT [place] head criteria negative. To concernfor possible olecranon [...] mad aboutwhat happened tonight and how his meat and seafood manager responded to it.- GeneralTime Seen by Provider: 05/26/24 05:24- Chief ComplaintChief Complaint: OtherPast Medical History - Adult- Nursing NotesStated Complaint: FALL, POSS LOC, ASPIRINAllergies/Adverse Reactions: AllergiesAllergy/AdvReac Type Severity Reaction Status Date / TimePatient Name: SHERRIE BAUGH Acct: [id number] Unit: [id number] Page 2No Known Allergies Allergy Verified 05/26/24 05:45Re-Evaluation MDM- ED CourseOrders-All:05/26/24 05:31Acetaminophen [Tylenol] 650 mg [...] 05:55IMPRESSION:Olecranon fracture.CRITICAL RESULT:Patient Name: SHERRIE BAUGH Acct: [id number] Unit: [id number] Page 3No.COMMUNICATION:Per this written report.Drafted by Scottie [...] approximately 1 week.Posterior long-arm splint applied by MARKER MAKER, post application exam shows good placement and noneurovascular compromise to the distal extremity. Patient states he is from a different town andplans on following up with an digital strategy specialist locally where he lives. He was [...] ED Note 1Patient Name: SHERRIE BAUGH Acct: [id number] Unit: [id number] Page 4Discharge Note:I have spoken with the [...] you need a physician referral, please call Xoyxcax-Y-Iesjq at (173) [facility] ([phone]) [phone].- Return to the nearest emergency department as needed or desired for any new, worsening, orpersistent symptoms.- If you are not established with a primary care physician you may call one of the local [facility] to schedule an appointment to establish care:[facility] Primary Care[address] [place] [address] [facility] Primary [address] [place] [address] [facility] Zrhr[address]66 [place] [address] [id number] Patient Name: SHERRIE BAUGH Acct: [id number] Unit: [id number] Page 5Family Care the [address] [place] [address] [facility] - Primary [address] [place] [address] [address] [place], [place] [phone] [address] - Post-Hospital CareReferrals:Chacorta Miramontes MD [Physician *] -<Electronically signed by Blanca Mcknight MD> 05/26/2412<Electronically signed by Floridalma Grace DO> 05/26/24 0647Patient Name: SHERRIE BAUGH Acct: [id number] Unit: [id number] Page 6 Plan of Treatment Future Tests Future scheduled test information is unavailable Pending Tests Pending diagnostic test information is unavailable Future Visits Future appointment information is unavailable Referrals to Other Providers Reason for Referral Referral Start Date Provider Provider Contact Information Provider Address Chacorta Miramontes MD Work Phone: [address] [facility] [address] [place] [address] Future Procedures Future procedure information is unavailable Future Medications Future medication information is unavailable Patient Instructions Instruction Admit Date ED Elbow Fracture May 26, 2024 4:2 2am
--- NOTE | 2024-06-09 11:15 | CT_ITS ---
FINAL REPORT TECHNIQUE: Thin section axial images were obtained through the upper extremity without contrast. Reconstruction images were obtained from the axial data. Exam was performed using dose reduction technique. CLINICAL HISTORY: Lt Elbow pain COMPARISON: None available. FINDINGS: There is a comminuted, minimally displaced fracture of the olecranon process. No additional fracture is visualized. No intra-articular loose bodies are identified. Joint spaces are preserved. There is soft tissue edema, worse posteriorly. There is a small joint effusion. Remaining soft tissues are without acute abnormality. No loculated fluid collection. IMPRESSION: Comminuted fracture of the olecranon process. Soft tissue edema and small joint effusion. Authenticated and ERN
== END 2024-06-09 23:59 | disposition home or self-care (01) ==
LOC: RAD 10:55
PROVIDERS: PCP Nurse Practitioner Family; Visit Provider Physician Assistant
DX: S52.022A Displaced fracture of olecranon process without intraarticular extension of left ulna, initial encounter for closed fracture (principal)
CPT/HCPCS: 73200

== ENCOUNTER 2024-06-17 12:24 | Outpatient (CLI) | payer OTHER, SELFPAY ==
--- OUTSIDE RECORDS SUMMARY | 2024-06-17 12:27 | XMS_ITS | Continuity of Care Document ---
Author Organization [facility]. If a dditional information is needed, contact Health Information Management at [phone] [address] [place] [address] Phone Care Team Providers Care Poultry Grader Name Role Phone Unavailable Unavailable Unavailable Unavailable Unavailable Unavailable Unavailable Unavailable Unavailable Unavailable Unavailable Unavailable Unavailable Unavailable Unavailable Problems Fracture of olecranon Onset:26-May-2024 Roxanna Rios MD Status:Acute Allergies and Adverse Reactions No Known Allergies(Allergy) Onset: 26-May-2024 Medications acetaminophen 325 MG Oral Ta blet;650 MG X1ED Quantity:2 Roxanna Rios MD Start:54-Uof-4105Xhf:2024 ibuprofen 600 MG Oral Tablet ;600 MG X1ED Quantity:1 Roxanna Rios MD Start:80-Scq-6039Ldj:2024 Procedures Elbow Minimum 3 View LeftResult:[place] [address] Diagnostic Imaging ReportPatient Name: SHERRIE BAUGH Acct: [id number]: 1980 Age: 43 Sex: M MR#: [id number] Date/Time: 05/26/24 0555 Admit Date/Time:Patient Status: PRE ER Ordering Physician: Ld Russell [facility]:Accession Number(s): [id number](s): Radiology XR Elbow minimum 3 View LtCPT Code(s): 85410UESJMQES INDICATION: elbow pain TECHNIQUE: XR Elbow minimum [...] MD in OV>05/26/24615 Thank you for choosing [facility]'s Imaging Services Dictated By: Scottie Hernandez MDDictated Date/Time: 05/26/24615Transcribed By: Scottie Hernandez MDPatient Name: SHERRIE BAUGH Acct: [id number] Unit: [id number] Page 1Transcribed Date/Time: 05/26/24615Technologist: Ana Laura Ramon To: Report ID: [id number] -End of Report-Patient Name: SHERRIE BAUGH Acct: [id number] Unit: [id number] Page 2 Date:26-May-2024 Status:Completed Vital Signs 26-May-2024 06:31 BP Tgzgtqbo993wf[Hg] BP Ftovbtgjh49md[Hg] 26-May-2024 06:25 O2 SAT98% Pulse86 26-May-2024 06:20 O2 SAT98% Pulse86 26-May-2024 06:15 BP Txzskvgn134ez[Hg] BP Ldvadsvsw00nn[Hg] 26-May-2024 06:15 O2 SAT98% Pulse85 26-May-2024 06:10 O2 SAT98% Pulse84 26-May-2024 06:04 Temp36.7c 26-May-2024 06:00 BP Xxtldccr180un[Hg] BP Ydjcsfjek61hy[Hg] 26-May-2024 06:00 O2 SAT97% Pulse78 26-May-2024 05:50 O2 SAT97% Pulse82 26-May-2024 05:45 BP Vksltxas681vf[Hg] BP Aqiattgsb50bd[Hg] 26-May-2024 05:45 O2 SAT97% Pulse81 26-May-2024 05:40 O2 SAT97% Pulse82 26-May-2024 05:33 O2 UAC834% 26-May-2024 05:33 BMI44.2cm Temp36.7c O2 XJG797% Pulse84 Respiratory Rate20 BP Wtztidrk443ey[Hg] BP Pcszpenxo20hp[Hg] Height5.9581565[ft_us] Hdrqoi819.54325nz 26-May-2024 05:30 BP Wecigfcz321eq[Hg] BP Jmwrtmxiq29bs[Hg] 26-May-2024 05:30 O2 SAT99% Pulse82 26-May-2024 05:27 O2 SAT99% Pulse88 26-May-2024 05:26 O2 KTC581% Pulse81 Encounters Emergency Encounter Reason:FALL, POSS LOC, ASPIRIN Encounter Diagnosis:ESSENTIAL (PRIMARY) HYPERTENSION,LONG-TERM (CURRENT) USE OF ASPIRIN,STRIKING AGAINST OTH OBJECT W SUBSEQUENT FALL, INIT ENCNTR,DISP FX OF OLECRAN PRO W/O INTARTIC EXTN LEFT ULNA, INIT 26-May-2024 05:55Vq43-Wdt-3407 07:05 Sanjay Gentile DO (Attending) [place] Discharge Disposition:Discharged to home or self care (routine discharge) ? ? ? Roxanna Rios MD-26-May-2024 [place], [place] [address]Phone: JZ PHYSICIAN RECORDPatient Name: SHERRIE BAUGHDOB: 1980 Age: 43 Sex: MAcct: [id number] MR#: [id number]: Author: Blanca Mcknight MDPatient Status: [facility] ER [facility]: 05/26/24Report Date/Time: 05/26/24 0541 Report Status: SignedReport#: [id number]<Blanca Mcknight - Last Filed: 05/26/24 06:12>HPI-General Illness- [...] resolved. He feel comfortable [facility].ROS[Constitutional: Negative except as documented in HPI.Eyes: [...] signs reviewed ]Patient Name: SHERRIE BAUGH Acct: [id number] Unit: [id number] Page 1[Nursing notes reviewed and I agree]PHYSICAL [...] consciousness, left elbow pain. Patient is CT [place] head criteria negative. To concernfor possible olecranon [...] mad aboutwhat happened tonight and how his sheep farm manager responded to it.- GeneralTime Seen by Provider: 05/26/24 05:24- Chief ComplaintChief Complaint: OtherPast Medical History - Adult- Nursing NotesStated Complaint: FALL, POSS LOC, ASPIRINAllergies/Adverse Reactions: AllergiesAllergy/AdvReac Type Severity Reaction Status Date / TimePatient Name: SHERRIE BAUGH Acct: [id number] Unit: [id number] Page 2No Known Allergies Allergy Verified 05/26/24 [...] 05:55IMPRESSION:Olecranon fracture.CRITICAL RESULT:Patient Name: SHERRIE BAUGH Acct: [id number] Unit: [id number] Page 3No.COMMUNICATION:Per this written report.Drafted by Scottie [...] approximately 1 week.Posterior long-arm splint applied by ALUMINUM SIDING APPLICATOR, post application exam shows good placement and noneurovascular compromise to the distal extremity. Patient states he is from a different town andplans on following up with an occupancy specialist locally where he lives. He was [...] ED Note 1Patient Name: SHERRIE BAUGH Acct: [id number] Unit: [id number] Page 4Discharge Note:I have spoken with the [...] you need a physician referral, please call Pjfusbd-E-Ejjlv at (600) [facility] ([phone]) [phone].- Return to the nearest emergency department as needed or desired for any new, worsening, orpersistent symptoms.- If you are not established with a primary care physician you may call one of the local [facility] to schedule an appointment to establish care:[facility] Primary Care[address] [place] [address] [facility] Primary [address] [place] [address] [facility] Yrab39[address] [place] [address] [id number] Patient Name: SHERRIE BAUGH Acct: [id number] Unit: [id number] Page 5Family Care the [address] [place] [address] [facility] - Primary [address] [place] [address] [address] [place], [place] [phone] [address] - Post-Hospital CareReferrals:Chacorta Miramontes MD [Physician *] -<Electronically signed by Blanca Mckngiht MD> 05/26/2412<Electronically signed by Floridalma Grace DO> 05/26/24 0647Patient Name: SHERRIE BAUGH Acct: [id number] Unit: [id number] Page 6 Plan of Treatment Future Tests Future scheduled test information is unavailable Pending Tests Pending diagnostic test information is unavailable Future Visits Future appointment information is unavailable Referrals to Other Providers Reason for Referral Referral Start Date Provider Provider Contact Information Provider Address Chacorta Miramontes MD Work Phone: [address] [facility] [address] [place] [address] Future Procedures Future procedure information is unavailable Future Medications Future medication information is unavailable Patient Instructions Instruction Admit Date ED Elbow Fracture May 26, 2024 4:2 2am
[2024-06-17 12:45] VITALS: BMI 47.0
--- NOTE | 2024-06-17 13:15 | ECG_ITS ---
APPROVED REPORT Exam: Resting ECG HR:69 bpm ECG Measurements Heart Rate 69 AXES VA 142 P 45 QRSd 101 QRS 37 QT 379 T 47 QTc 397 Conclusion SINUS RHYTHM NORMAL ECG UNCONFIRMED REPORT Electronically signed by : Howard Smith MD 06/19/2024 08:03:34
[2024-06-17 13:50] LABS: Basophils % 0.4 % (0.1-2.0); Eosinophils # 0.6 Kmm3 (0.0-0.4); Eosinophils % 5.2 % (0.1-12.0); Hematocrit 35.9 % (42.0-52.0); Hemoglobin 11.4 g/dL (14.1-18.0); Lymphocytes # 2.1 K/mm3 (0.7-4.5); Lymphocytes % 18.7 % (10-50); Mean Corpuscular HGB Conc 31.8 g/dL (31.8-35.4); Mean Corpuscular Hemoglobin 27.5 pg (27.0-31.2); Mean Corpuscular Volume 86.5 fl (80-94); Mean Platelet Volume 9.9 fl (7.4-10.4); Monocytes % 9.3 % (1.7-9.3); Neutrophils # 7.3 K/mm3 (1.8-7.8); Neutrophils % 65.1 % (37.0-80.0); Nucleated Red Blood Cells # 0 10^3/uL; Nucleated Red Blood Cells % 0 %; Platelet Count 323 K/mm3 (142-424); Red Blood Count 4.15 M/mm3 (4.60-6.20); Red Cell Distribution Width 14.2 % (11.5-17.5); Red Cell Distribution Width-SD 45.1 fL; White Blood Count 11.2 K/mm3 (4.8-10.8)
[2024-06-17 13:54] LABS: Anion Gap 6.7 mEq/L (5-15); Blood Urea Nitrogen 19 mg/dl (9-20); Calcium 8.8 mg/dl (8.4-10.2); Carbon Dioxide 30 mmol/L (22.0-30.0); Chloride 100 mmol/L (98-107); Creatinine Clearance Estimated 130 mL/min (50-200); Estimated Glomerular Filt Rate 123 ml/min (>60); GFR (African American) 148 ML/MIN (>60); Glucose 319 mg/dl (74-100); Potassium 4.7 mmoL/L (3.5-5.1); Sodium 132 mmol/L (136-145)
== END 2024-06-17 23:59 | disposition home or self-care (01) ==
PROVIDERS: PCP Nurse Practitioner Family; Visit Provider Orthopaedic Surgery
DX: Z01.810 Encounter for preprocedural cardiovascular examination (principal); Z01.812 Encounter for preprocedural laboratory examination
CPT/HCPCS: 80048; 85025; 93005

== ENCOUNTER 2024-06-30 10:19 | Outpatient (CLI) | payer OTHER, SELFPAY ==
--- OUTSIDE RECORDS SUMMARY | 2024-06-30 10:22 | XMS_ITS | Continuity of Care Document ---
Author Organization [facility]. If a dditional information is needed, contact Health Information Management at [phone] [address] [place] [address] Phone Care Team Providers Care Train Brake Operator Name Role Phone Unavailable Unavailable Unavailable Unavailable Unavailable Unavailable Unavailable Unavailable Unavailable Unavailable Unavailable Unavailable Unavailable Unavailable Unavailable Problems Fracture of olecranon Onset:26-May-2024 Roxanna Rios MD Status:Acute Allergies and Adverse Reactions No Known Allergies(Allergy) Onset: 26-May-2024 Medications acetaminophen 325 MG Oral Ta blet;650 MG X1ED Quantity:2 Roxanna Rios MD Start:12-Fmg-4966Ooz:2024 ibuprofen 600 MG Oral Tablet ;600 MG X1ED Quantity:1 Roxanna Rios MD Start:02-Rms-9785Rvl:2024 Procedures Elbow Minimum 3 View LeftResult:[place] [address] Diagnostic Imaging ReportPatient Name: SHERRIE BAUGH Acct: [id number]: 1980 Age: 43 Sex: M MR#: [id number] Date/Time: 05/26/24 0555 Admit Date/Time:Patient Status: PRE ER Ordering Physician: Ld Russell [facility] Attending Physician:Accession Number(s): [id number](s): Radiology XR Elbow minimum 3 View LtCPT Code(s): 50685VAQDOGDL INDICATION: elbow pain TECHNIQUE: XR Elbow minimum 3 View Lt COMPARISON: None. FINDINGS: Comminuted olecranon fracture with only minimal displacement of fracture fragments. No dislocationat the left elbow. RAD/XR Elbow minimum 3 View LtIMPRESSION:Olecranon fracture.CRITICAL RESULT:No.COMMUNICATION:Per this written report.Drafted by Scottie Hernandez MD on 05/26/2024 6:16 AMFinal report signed by Scottie Hernandez MD on 05/26/2024 6:16 AM<Electronically signed by Socttie Hernandez MD in OV>05/26/24615 Thank you for choosing [facility]'s Imaging Services Dictated By: Scottie Hernandez MDDictated Date/Time: 05/26/24615Transcribed By: Scottie Hernandez MDPatient Name: SHERRIE BAUGH Acct: [id number] Unit: [id number] Page 1Transcribed Date/Time: 05/26/24615Technologist: Ana Laura Ramon To: Report ID: [id number] -End of Report-Patient Name: SHERRIE BAUGH Acct: [id number] Unit: [id number] Page 2 Date:26-May-2024 Status:Completed Vital Signs 26-May-2024 06:31 BP Vipbmdkv432sr[Hg] BP Vhmsihssp06ov[Hg] 26-May-2024 06:25 O2 SAT98% Pulse86 26-May-2024 06:20 O2 SAT98% Pulse86 26-May-2024 06:15 BP Axoydshu693jy[Hg] BP Xrincekrt48jo[Hg] 26-May-2024 06:15 O2 SAT98% Pulse85 26-May-2024 06:10 O2 SAT98% Pulse84 26-May-2024 06:04 Temp36.7c 26-May-2024 06:00 BP Fyplawzs491mm[Hg] BP Oktljsvxc74hq[Hg] 26-May-2024 06:00 O2 SAT97% Pulse78 26-May-2024 05:50 O2 SAT97% Pulse82 26-May-2024 05:45 BP Gefmpvum068km[Hg] BP Nxlgzinss63vk[Hg] 26-May-2024 05:45 O2 SAT97% Pulse81 26-May-2024 05:40 O2 SAT97% Pulse82 26-May-2024 05:33 O2 MER144% 26-May-2024 05:33 BMI44.2cm Temp36.7c O2 OOO345% Pulse84 Respiratory Rate20 BP Quzehtmv381oe[Hg] BP Ufyxnkcxg44kq[Hg] Height5.1886500[ft_us] Vqyoge539.73620pv 26-May-2024 05:30 BP Vtpgokzq335pd[Hg] BP Uekmknguy97rz[Hg] 26-May-2024 05:30 O2 SAT99% Pulse82 26-May-2024 05:27 O2 SAT99% Pulse88 26-May-2024 05:26 O2 CLP394% Pulse81 Encounters Emergency Encounter Reason:FALL, POSS LOC, ASPIRIN Encounter Diagnosis:ESSENTIAL (PRIMARY) HYPERTENSION,FCI (CURRENT) USE OF ASPIRIN,STRIKING AGAINST OTH OBJECT W SUBSEQUENT FALL, INIT ENCNTR,DISP FX OF OLECRAN PRO W/O INTARTIC EXTN LEFT ULNA, INIT 26-May-2024 05:10Te92-Fhn-2902 07:05 Sanjay Gentile DO (Attending) [place] Discharge Disposition:Discharged to home or self care (routine discharge) ? ? ? Roxanna Rios MD-26-May-2024 [place], [place] [address]Phone: [place] PHYSICIAN RECORDPatient Name: SHERRIE BAUGHDOB: 1980 Age: 43 Sex: MAcct: [id number] MR#: [id number]: Author: Blanca Mcknight MDPatient Status[facility] 05/[facility]24Report Date/Time: 05/26/24 0541 Report Status: SignedReport#: [id number]<Blanca Mcknight - Last Filed: 05/26/24 06:12>HPI-General Illness- [...] resolved. He feel [facility]ROS[Constitutional: Negative except as documented in HPI.Eyes: [...] signs reviewed ]Patient Name: SHERRIE BAUGH Acct: [id number] Unit: [id number] Page 1[Nursing notes reviewed and I agree]PHYSICAL [...] consciousness, left elbow pain. Patient is CT [place] head criteria negative. To concernfor possible olecranon [...] mad aboutwhat happened tonight and how his food stand manager responded to it.- GeneralTime Seen by Provider: 05/26/24 05:24- Chief ComplaintChief Complaint: OtherPast Medical History - Adult- Nursing NotesStated Complaint: FALL, POSS LOC, ASPIRINAllergies/Adverse Reactions: AllergiesAllergy/AdvReac Type Severity Reaction Status Date / TimePatient Name: SHERRIE BAUGH Acct: [id number] Unit: [id number] Page 2No Known Allergies Allergy Verified 05/26/24 [...] 05:55IMPRESSION:Olecranon fracture.CRITICAL RESULT:Patient Name: SHERRIE BAUGH Acct: [id number] Unit: [id number] Page 3No.COMMUNICATION:Per this written report.Drafted by Scottie [...] approximately 1 week.Posterior long-arm splint applied by SUPERVISOR FINISHING ROOM, post application exam shows good placement and noneurovascular compromise to the distal extremity. Patient states he is from a different town andplans on following up with an biotech production specialist locally where he lives. He was [...] ED Note 1Patient Name: SHERRIE BAUGH Acct: [id number] Unit: [id number] Page 4Discharge Note:I have spoken with the [...] you need a physician referral, please call Ljqdogb-Y-Ldnir at ([phone]) [facility] ([phone]) [phone].- Return to the nearest emergency department as needed or desired for any new, worsening, orpersistent symptoms.- If you are not established with a primary care physician you may call one of the local [facility] to schedule an appointment to establish care:[facility] Primary Care[address] [place] [address] BaptSaint [facility] Primary F[address] [place] [address] [facility] Primary Axbu[address]22 [place] [address] [phone] Patient Name: SHERRIE BAUGH Acct: [id number] Unit: [id number] Page 5Family Care the [address] [place] [address] [facility] - Primary [address] [place] [address] Suite [place], [place] [phone] [address] - Post-Hospital CareReferrals:Chacotra Miramontes MD [Physician *] -<Electronically signed by Blanca Mcknight MD> 05/26/2412<Electronically signed by Floridalma Grace DO> 05/26/24 0647Patient Name: SHERRIE BAUGH Acct: [id number] Unit: [id number] Page 6 Plan of Treatment Future Tests Future scheduled test information is unavailable Pending Tests Pending diagnostic test information is unavailable Future Visits Future appointment information is unavailable Referrals to Other Providers Reason for Referral Referral Start Date Provider Provider Contact Information Provider Address Chacorta Miramontes MD Work Phone: [address]imoThink[address] [facility] [address] [place] [address] Future Procedures Future procedure information is unavailable Future Medications Future medication information is unavailable Patient Instructions Instruction Admit Date ED Elbow Fracture May 26, 2024 4:2 2am
--- NOTE | 2024-06-30 10:30 | CT_ITS ---
FINAL REPORT TECHNIQUE: Axial CT images were performed through the head. Coronal reformatted images were submitted. This study was performed with techniques to keep radiation doses as low as reasonably achievable, (ALARA). Individualized dose reduction techniques using automated exposure control or adjustment of mA and/or kV according to the patient's size were employed. CLINICAL HISTORY: Fall hitting head with loss of consciousness COMPARISON: None FINDINGS: The ventricles are normal in size. There is no evidence of hemorrhage. There is no mass or edema identified. There is no abnormal extra-axial fluid seen. The sinuses are well aerated. IMPRESSION: No acute intracranial process. Reviewed, Interpreted and Dictated by Charlie Capone MD Transcribed by Thi Haro Authenticated and [facility]
== END 2024-06-30 23:59 | disposition home or self-care (01) ==
LOC: RAD 10:20
PROVIDERS: PCP Nurse Practitioner Family; Visit Provider Nurse Practitioner Family
DX: S06.9X9A Unspecified intracranial injury with loss of consciousness of unspecified duration, initial encounter (principal); Y99.0 Civilian activity done for income or pay
CPT/HCPCS: 70450

== ENCOUNTER 2024-07-06 06:26 | Day surgery (SDC) | payer OTHER, SELFPAY ==
[2024-06-17 14:46] VITALS: BMI 44.2
[2024-07-06] VITALS (9 sets, daily range): BP systolic 138–147; BP diastolic 65–84; PULSE 66–77; RESP 12–18; TEMP 36.3–36.6; O2SAT 91–98
--- NOTE | 2024-07-06 07:10 | EXP.ANES.CKL ---
[facility] Disclaimer: The information contained in this section may have been updated after the patient was seen, as this information can be updated by other users. Medical History History of retinopathy Dehydration Lightheaded Edema of both lower extremities Family history of blood clots Dizziness Family history of ischemic heart disease and other diseases of the circulatory system BMI 45.0-49.9, adult Asthma HLD (hyperlipidemia) HTN (hypertension) Hypoglycemia Neuropathy Autism Diabetes mellitus Hyperglycemia Surgical History No significant past surgical history Family History Other Family history of cancer Family history of diabetes mellitus Family history of heart disease Social History Smoking Status: Never smoker alcohol intake: never substance use type: denies use current occupational status: employed Travel in the last 8 weeks?: None household members: spouse and family housing: house Have you lived/traveled outside US in past 30 days?: No Contact w/someone who lives/traveled outside US past 30 days?: No Exposure to someone with infectious disease in past 14 days?: No Do you have a fever (greater than 100.4 F or 38 C)?: No Have you tested positive for COVID-19?: No Exposed to someone with COVID-19 in past 14 days?: No Do you have a sore throat?: No Do you have a cough?: No Do you have any weakness?: No Do you have any diarrhea?: No Are you experiencing any unusual bleeding?: No Do you have any muscle aches/pain?: No Do you have any abdominal pain?: No Are you experiencing loss of taste or smell?: No [facility] Anesthesia Checklist Patient Identification Patient Identification: Arm Band and Verbal (Name & ) Structural Data Admitted From: Inpatient Planned Operative Procedure/s: EGD colonscopy Consent for Planned Operative Procedure(s) Verified: Yes Verified Documents: Surgical Consent and History and Physical NPO Status Verified Time NPO: 00:00 Additional verifications Anesthesia Reactions: No Previous Colonoscopy: Yes Airway Assessment Mallampati Score:: Class II Neurological Assessment Level of Consciousness: Awake, Alert and Appropriate Hx Seizures: No Anesthesia Plan Anesthesia Risk discussed: Yes Anesthesia Plan: Verified ASA Class: III Anesthesia Type: MAC
[2024-07-06] MEDS: LACTATED RINGERS 1000ML 1,000 ML 100 ML IV (07:13)
[2024-07-06 07:35] LABS: POC Glucose,Bedside 167 (70-110)
--- NOTE | 2024-07-06 07:43 | EXP.ANES.CKL ---
[facility] Disclaimer: The information contained in this section may have been updated after the patient was seen, as this information can be updated by other users. Medical History History of retinopathy Dehydration Lightheaded Edema of both lower extremities Family history of blood clots Dizziness Family history of ischemic heart disease and other diseases of the circulatory system BMI 45.0-49.9, adult Asthma HLD (hyperlipidemia) HTN (hypertension) Hypoglycemia Neuropathy Autism Diabetes mellitus Hyperglycemia Surgical History No significant past surgical history Family History Other Family history of cancer Family history of diabetes mellitus Family history of heart disease Social History Smoking Status: Never smoker alcohol intake: never substance use type: denies use current occupational status: employed Travel in the last 8 weeks?: None household members: spouse and family housing: house Have you lived/traveled outside US in past 30 days?: No Contact w/someone who lives/traveled outside US past 30 days?: No Exposure to someone with infectious disease in past 14 days?: No Do you have a fever (greater than 100.4 F or 38 C)?: No Have you tested positive for COVID-19?: No Exposed to someone with COVID-19 in past 14 days?: No Do you have a sore throat?: No Do you have a cough?: No Do you have any weakness?: No Do you have any diarrhea?: No Are you experiencing any unusual bleeding?: No Do you have any muscle aches/pain?: No Do you have any abdominal pain?: No Are you experiencing loss of taste or smell?: No [facility] Anesthesia Checklist Patient Identification Patient Identification: Arm Band and Verbal (Name & ) Structural Data Admitted From: Home Planned Operative Procedure/s: L ORIF Consent for Planned Operative Procedure(s) Verified: Yes Verified Documents: Surgical Consent NPO Status Verified Time NPO: 00:00 Additional verifications Anesthesia Reactions: No Hx Blood Transfusions: No Blood Transfusion Reaction: No Airway Assessment Mallampati Score:: Class II Dentition: Good Dentition Neurological Assessment Level of Consciousness: Awake, Alert and Appropriate Anesthesia Plan Anesthesia Risk discussed: Yes Anesthesia Plan: Verified ASA Class: III Anesthesia Type: General w/block
--- NOTE | 2024-07-06 08:49 | XR_ITS ---
FINAL REPORT CLINICAL HISTORY: XRAY EVALUATION IN OR. OLECERNON FX 6 WEEKS AGO. SURGEON DID NOT FIX FX 1.24 MGY .37 FLUORO TIME FINDINGS: FLUOROSCOPY LESS THAN 1 HOUR HISTORY: Fluoroscopy guidance. Fluoroscopic guidance was provided for x-ray evaluation in the OR. A single spot film was obtained. A total of 0.37 minutes of fluoroscopy time were used. Total DAP: 1.24 mGy IMPRESSION: As above. Reviewed, Interpreted and Dictated by Erika Geller MD Transcribed by Yamilex Carson Authenticated and [facility]
--- NOTE | 2024-07-06 09:03 | EXP.ANES.CKL ---
[facility] Disclaimer: The information contained in this section may have been updated after the patient was seen, as this information can be updated by other users. Medical History History of retinopathy Dehydration Lightheaded Edema of both lower extremities Family history of blood clots Dizziness Family history of ischemic heart disease and other diseases of the circulatory system BMI 45.0-49.9, adult Asthma HLD (hyperlipidemia) HTN (hypertension) Hypoglycemia Neuropathy Autism Diabetes mellitus Hyperglycemia Surgical History No significant past surgical history Family History Other Family history of cancer Family history of diabetes mellitus Family history of heart disease Social History Smoking Status: Never smoker alcohol intake: never substance use type: denies use current occupational status: employed Travel in the last 8 weeks?: None household members: spouse and family housing: house Have you lived/traveled outside US in past 30 days?: No Contact w/someone who lives/traveled outside US past 30 days?: No Exposure to someone with infectious disease in past 14 days?: No Do you have a fever (greater than 100.4 F or 38 C)?: No Have you tested positive for COVID-19?: No Exposed to someone with COVID-19 in past 14 days?: No Do you have a sore throat?: No Do you have a cough?: No Do you have any weakness?: No Do you have any diarrhea?: No Are you experiencing any unusual bleeding?: No Do you have any muscle aches/pain?: No Do you have any abdominal pain?: No Are you experiencing loss of taste or smell?: No [facility] Anesthesia Checklist Patient Identification Patient Identification: Verbal (Name & ) Structural Data Admitted From: Home Planned Operative Procedure/s: l olecranon repair Consent for Planned Operative Procedure(s) Verified: Yes NPO Status Verified Time NPO: 00:00 Additional verifications Anesthesia Reactions: No Hx Blood Transfusions: No Blood Transfusion Reaction: No Airway Assessment Mallampati Score:: Class III C-Spine Mobility Assessed: Yes TMJ Mobility Assessed: Yes Dentition: Poor Dentition Neurological Assessment Level of Consciousness: Awake, Alert and Appropriate Anesthesia Plan Anesthesia Risk discussed: Yes Anesthesia Plan: Verified ASA Class: III Anesthesia Type: General w/block Preoperative Comments Pre-Operative Comments: explained scb to pt incl risks, pt agrees to proceed
--- NOTE | 2024-07-06 09:05 | P.PNANES_ITS ---
[facility] Anesthesia Record Part I Anesthesia Record I Intake, IV Amount: 1,200 Hydration: Adequate Estimated blood loss (mL): 0 Urine output (mL): 0 Blood Pressure: 140/77 SaO2: 95 Pulse Rate: 67 Airway Patency: Patent Respiratory Rate: 12 Temperature: 97.8 F Patient is:: Awake and Stable Stable to PACU at:: 08:55
--- NOTE | 2024-07-06 09:07 | SUR.OPER ---
Dr. Haines performed xray evaluation under anesthesia and manipulated left elbow under anesthesia. He concluded that the procedure consented for was not necessary at this time. Patient's arm was redressed with GABBY wrap and placed in sling. Patient stable and transported to PACU.
--- NOTE | 2024-07-06 11:36 | P.OP_ITS ---
Date of procedure: 07/06/24 Pre-op Diagnosis:: Left elbow olecranon fracture Post-op Diagnosis:: Same Procedure performed:: Radiographic evaluation of left elbow fracture under anesthesia Left elbow manipulation under anesthesia Surgeon:: Howard Haines DO CONTINUING EDUCATION DIRECTOR:: Luciano Hedrick Anesthesia: GETA Estimated blood loss (mL): 0 Operative findings:: Fracture of the olecranon subacute with no displacement and stable joint radiographically with flexion extension pronation supination full range of motion after evaluation. Operative note:: Patient was identified preoperatively. Left elbow marked with yes and my initials. Then transported operative suite. He was placed on operating bed and general anesthesia was administered. Patient suffered a olecranon fracture of the elbow and we had great difficulty getting authorization for surgery he had been immobilized in a long-arm splint for over a month. The plan was for open reduction internal fixation of the olecranon. However prior to making incision x-ray was brought in after anesthesia was administered and timeout was performed to evaluate the left elbow. Radiographically. The arm was flexed and extended. He had -2 to 3 degrees of full extension which was passively fully extended after manipulation. Full aggressive range of motion of the elbow was performed and then watched radiographically on the C arm. There was no displacement of the olecranon component. This had started to heal in an adequate position. The decision was made at that time not to open the fracture site and perform open reduction internal fixation because of how stable this appeared radiographically. Full pronation supination flexion extension of the elbow was obtained after manual extension of the elbow then I revisited this and watched it under live fluoroscopic view to prove that there is stability of the elbow but also no mechanical blocks and no displacement of the fracture fragment. This was confirmed radiographically. Therefore decision was made not to do open reduction internal fixation as this fracture piece was healing in adequate position and moving as 1 piece and there was a stable elbow joint. Therefore patient was waken anesthesia taken recovery in stable condition after manipulation with obtaining full extension of the elbow. Condition: stable Disposition: PACU Complications:: None apparent
--- NOTE | 2024-07-07 08:23 | P.PNANES_ITS ---
[facility] Anesthesia Record Part II Anesthesia Record Part II Discharge Time: 09:25 Destination: [facility] PACU nurse assessment reviewed?: Yes Patient Condition:: Good Anesthesia Complications:: None Swallowing reflex intact?: Yes Airway Patency: Patent Cyanosis?: No Blood Pressure: 147/84 SaO2: 95 Respiratory Rate: 16 Pulse Rate: 72 Temperature: 97.8 F Mental Status: Alert & Oriented Pain level:: 0 Nausea and/or vomitting:: None Intake, IV Amount: 1,500 Hydration: Adequate
[2024-07-07 08:24] VITALS: BP 147/84; PULSE 72; RESP 16; TEMP 36.6; O2SAT 95
== END 2024-07-06 09:56 | disposition home or self-care (01) ==
PROVIDERS: PCP Nurse Practitioner Family; Visit Provider Orthopaedic Surgery
PROC: (CPT 24675; principal; 2024-07-06 08:00)
DX: S52.025A Nondisplaced fracture of olecranon process without intraarticular extension of left ulna, initial encounter for closed fracture (principal); W01.0XXA Fall on same level from slipping, tripping and stumbling without subsequent striking against object, initial encounter; Y92.59 Other trade areas as the place of occurrence of the external cause; Y99.0 Civilian activity done for income or pay; E11.9 Type 2 diabetes mellitus without complications; I10 Essential (primary) hypertension; Z91.018 Allergy to other foods; Z88.6 Allergy status to analgesic agent; J45.909 Unspecified asthma, uncomplicated; Z79.51 Long term (current) use of inhaled steroids; Z79.4 Long term (current) use of insulin; Z79.899 Other long term (current) drug therapy
CPT/HCPCS: 24675; 73070; 76000; 82962; 96374; J2250; J3010; J7120

== ENCOUNTER 2024-07-21 09:22 | Outpatient (CLI) | payer OTHER, SELFPAY ==
--- NOTE | 2024-07-21 09:27 | XR_ITS ---
FINAL REPORT CLINICAL HISTORY: left elbow fx 05/26/24 no sx COMPARISON: 06/09/2024 FINDINGS: AP, oblique, and lateral views of the left elbow were obtained. There has been interval healing of the previously seen comminuted olecranon fracture. No new fractures identified. There is no dislocation. No significant joint effusion is identified. IMPRESSION: Healing fracture as above. Reviewed, Interpreted and Dictated by Meghan Hernandez MD Transcribed by Patience Chavez Authenticated and [facility]
== END 2024-07-21 23:59 | disposition home or self-care (01) ==
LOC: RAD 09:23
PROVIDERS: PCP Nurse Practitioner Family; Visit Provider Orthopaedic Surgery
DX: S52.032D Displaced fracture of olecranon process with intraarticular extension of left ulna, subsequent encounter for closed fracture with routine healing (principal)
CPT/HCPCS: 73080

== ENCOUNTER 2024-08-01 09:50 | Outpatient (CLI) | payer OTHER, SELFPAY ==
--- OUTSIDE RECORDS SUMMARY | 2024-08-01 09:57 | XMS_ITS | Clinical Summary ---
Author Organization Healthcare Address [address] [place] [address] Care Team Providers Care Etymology Professor Name Role Phone Pcp, No Primary Care Provider Unavailabl e Allergies No known active allergies Medications Ventolin HFA 108 (90 Base) MCG/ACT inhaler Inhale 2 puffs 1 (one) time if needed. 4 Active cholecalciferol (Vitamin D-3) 50 MCG (2000 UT) capsule Take 1 capsule (2,000 Units) by mouth 1 (one) time each day. 4 Active Continuous Glucose Sensor (Dexcom G6 Sensor) misc USE DIRECTED TO TEST BLOOD SUGAR 4 Active Continuous Glucose Transmitter (Dexcom G6 transmitter) misc USE DIRECTED TO TEST BLOOD GLUCOSE LEVEL 4 Active FeroSul 325 (65 Fe) MG tablet Take 1 tablet (325 mg) by mouth 2 (two) times a day. 4 Active lisinopril 5 MG tablet Take 1 tablet (5 mg) by mouth 1 (one) time each day. 4 Active pravastatin (Pravachol) 20 MG tablet 4 Active valACYclovir (Valtrex) 1 g tablet 3 Active insulin glargine (Lantus SoloStar, Basaglar) 100 UNIT/ML injection penIndications:Ty pe 1 diabetes mellitus with other specified complication (CMS/HCC) Inject 34 Units under the skin 1 (one) time each day. 45 mL 1 4 08/28/19 25 Active insulin lispro (Admelog, HumaLOG) 100 UNIT/ML injection penIndications:Ty pe 1 diabetes mellitus with other specified complication (CMS/HCC) Inject 1u for every 8 grams of carb plus correction before meals. 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 03/31/2023 Regular astigmatism, bilateral 03/31/2023 Social History Tobacco Use Types Packs/Day Years Used Date Smoking Tobacco: Never Smokeless Tobacco: Never Alcohol Use Standard Drinks/Week Comments Never 0 (1 standard drink = 0.6 oz pur e alcohol) Sex and Gender Information Value Date Recorded Sex Assigned at Not on file Legal Sex Male 10:39 AM EST Gender Identity Not on file Sexual Orientation Not on file Last Filed Vital Signs Vital Sign Reading Time Taken Comments Blood Pressure 106/72 08/28/2023 2:46 PM EDT Pulse 73 08/28/2023 2:46 PM EDT Temperature - - Respiratory Rate - - Oxygen Saturation - - Inhaled Oxygen Concentration - - Weight 127 kg (279 lb 8.7 oz) 08/28/2023 1:46 PM EDT Height 172.7 cm (5' 8 ) 08/28/2023 1:46 PM EDT Body Mass Index 42.5 08/28/2023 1:46 PM EDT Plan of Treatment Health Maintenance Due Date Last Done Comments [facility]-Depression Screening 1980 [facility]-Diabetes: Hemoglobin A1C 1979 [facility]-HIV Screening 1980 [facility]-Hepatitis C Screening 1980 [facility]-/Child/Adol SDOH Screenings 1980 Diabetes: Dental Exam 10/14/1989 [facility]-Varicella Vaccines (1 of 2 - 13+ 2-dose series) 10/14/1992 HPV Vaccines (1 - Male 3-dos e series) 10/14/1994 [facility]- SDOH Screenings 10/14/1997 [facility]-Adult SDOH Screenings 10/14/1997 [facility]-DTaP,Tdap,and Td Vaccine s (1 - Tdap) 10/14/1998 [facility]-Hepatitis B Vaccines (1 of 3 - 19+ 3-dose series) 10/14/1998 [facility]-Pneumococcal Vaccine: Pediatrics (0 to 5 Years) and At-Risk Patients (6 to 49 Years) (1 of 2 - PCV) 10/14/1998 [id number] Vaccine (3 - 2023-25 season) 2023 05/16/2021, 04/17/2021 [facility]-Influenza Vaccine (Seas[place] n Ended) 2024 [facility]-Zoster Vaccines (1 of 2) 10/14/2029 [facility]-Obesity Intervention Completed 08/28/2023 [facility]-HIB Vaccines Aged Out No longer e ligible based on patient's age to complete this topic [facility]-Hepatitis A Vaccines Aged Out No longer eligible based on patient's age to complete this topic [facility]-IPV Vaccines Aged Out No longer e ligible based on patient's age to complete this topic [facility]-Rotavirus Vaccines Aged Out No lo nger eligible based on patient's age to complete this topic Insurance [employer] Member Subscriber Plan / Payer (Ef fective 2024-Present) Name:Sherrie Coy Relation to Subscriber:Employee Name:SHERRIE COY Date of :1980 (Home) Address: [address] [place] [address] Payer ID:Not on file Group ID:Not on file Type:Indemnity Address: [address] [place] [id number] Care Teams Etymology Professor Relationship Specialty Start Date End Date Pcp, Adele [address] [place] [address] PCP - General Family Medicine 08/28/23
[2024-08-01 10:35] LABS: Basophils % 0.5 % (0.1-2.0); Eosinophils # 0.5 Kmm3 (0.0-0.4); Eosinophils % 5.9 % (0.1-12.0); Hematocrit 36.7 % (42.0-52.0); Immature Granulocytes # 0.02 10^3uL; Immature Granulocytes % 0.2 %; Lymphocytes # 2.1 K/mm3 (0.7-4.5); Mean Corpuscular Hemoglobin 26.4 pg (27.0-31.2); Mean Platelet Volume 9.5 fl (7.4-10.4); Monocytes # 0.7 K/mm3 (0.1-1.0); Monocytes % 8.3 % (1.7-9.3); Neutrophils # 5.1 K/mm3 (1.8-7.8); Neutrophils % 60.1 % (37.0-80.0); Nucleated Red Blood Cells # 0 10^3/uL; Nucleated Red Blood Cells % 0 %; Platelet Count 304 K/mm3 (142-424); Red Blood Count 4.17 M/mm3 (4.60-6.20); Red Cell Distribution Width 13.2 % (11.5-17.5); Red Cell Distribution Width-SD 42.3 fL; White Blood Count 8.5 K/mm3 (4.8-10.8)
[2024-08-01 10:45] LABS: Albumin Level 3.4 g/dl (3.5-5.0); Chloride 104 mmol/L (98-107); Potassium 4.9 mmoL/L (3.5-5.1); Sodium 135 mmol/L (136-145)
[2024-08-01 10:47] LABS: Blood Urea Nitrogen 13 mg/dl (9-20); Estimated Glomerular Filt Rate 123 ml/min (>60); GFR (African American) 148 ML/MIN (>60)
[2024-08-01 10:48] LABS: Alanine Aminotransferase 33 U/L (12-78); Albumin/Globulin Ratio 1.4 (1.1-1.8); Alkaline Phosphatase 83 U/L (38-126); Anion Gap 7.9 mEq/L (5-15); Aspartate Amino Transferase 27 U/L (17-59); Bilirubin,Total 0.5 mg/dl (0.2-1.3); Calcium 8.3 mg/dl (8.4-10.2); Carbon Dioxide 28 mmol/L (22.0-30.0); Chol/HDL Ratio 4.4 (1-3.5); Cholesterol 161 mg/dl (140-200); Globulin 2.4 g/dL (1.3-3.2); Glucose 221 mg/dl (74-100); HDL Cholesterol 37 mg/dl (40-60); Iron 45 ug/dL (49-181); Total Protein,Serum 5.8 g/dl (6.3-8.2); Triglycerides 75 mg/dl (30-150); VLDL Cholesterol 15 mg/dL (0-40)
[2024-08-01 10:59] LABS: Direct LDL Cholesterol 98.68 mg/dL (100-129)
[2024-08-01 11:05] LABS: Total Iron Binding Capacity 354 ug/dL (261-462)
[2024-08-01 11:39] LABS: Hemoglobin A1C 7.5 % (4.0-6.0)
[2024-08-02 08:12] LABS: Testosterone,Total 323 ng/dL (264-916)
== END 2024-08-01 23:59 | disposition home or self-care (01) ==
LOC: LAB 09:51
PROVIDERS: PCP Nurse Practitioner Family; Visit Provider Nurse Practitioner Family
DX: D50.9 Iron deficiency anemia, unspecified (principal); I10 Essential (primary) hypertension; E78.2 Mixed hyperlipidemia; E10.9 Type 1 diabetes mellitus without complications; R79.89 Other specified abnormal findings of blood chemistry; R60.9 Edema, unspecified; R41.3 Other amnesia; R53.83 Other fatigue
CPT/HCPCS: 36415; 80053; 80061; 82728; 83036; 83540; 83550; 84402; 84403; 85025

== ENCOUNTER 2024-08-18 08:56 | Outpatient (CLI) | payer OTHER, SELFPAY ==
--- OUTSIDE RECORDS SUMMARY | 2024-05-26 03:05 | XMS_ITS | Continuity of Care Document ---
Author Organization [facility]. If a dditional information is needed, contact Health Information Management at [phone] Address [address] [place] [address] Phone Care Team Providers Care Armed Security Guard Name Role Phone Unavailable Unavailable Unavailable Unavailable Unavailable Unavailable Unavailable Unavailable Unavailable Unavailable Unavailable Unavailable Unavailable Unavailable Unavailable Problems Fracture of olecranon Onset:26-May-2024 Roxanna Rios MD Status:Acute Allergies and Adverse Reactions No Known Allergies(Allergy) Onset: 26-May-2024 Medications acetaminophen 325 MG Oral Ta blet;650 MG X1ED Quantity:2 Roxanna Rios MD Start:83-Tav-0721Ubi:2024 ibuprofen 600 MG Oral Tablet ;600 MG X1ED Quantity:1 Roxanna Rios MD Start:63-Cni-6227Pvb:2024 Procedures Elbow Minimum 3 View LeftResult:[place] [address] Diagnostic Imaging ReportPatient Name: SHERRIE BAUGH Acct: [id number]: 1980 Age: 43 Sex: M MR#: [id number] Date/Time: 05/26/24 0555 Admit Date/Time:Patient Status: PRE ER Ordering Physician: Ld Russell [facility] Att[facility]ician:Accession Number(s): [id number](s): Radiology XR Elbow minimum 3 View LtCPT Code(s): 90533QHEBYZQT INDICATION: elbow pain TECHNIQUE: XR Elbow minimum 3 View Lt COMPARISON: None. FINDINGS: Comminuted olecranon fracture with only minimal displacement of fracture fragments. No dislocationat the left elbow. RAD/XR Elbow minimum 3 View LtIMPRESSION:Olecranon fracture.CRITICAL RESULT:No.COMMUNICATION:Per this written report.Drafted by Scottie Hernandez MD on 05/26/2024 6:16 AMFinal report signed by Scottie Hernandez MD on 05/26/2024 6:16 AM<Electronically signed by Scottie Hernandez MD in OV>05/26/24615 Thank you for choosing [facility] Services Dictated By: Scottie Hernandez MDDictated Date/Time: 05/26/24615Transcribed By: Scottie Hernandez MDPatient Name: SHERRIE BAUGH Acct: [id number] Unit: [id number] Page 1Transcribed Date/Time: 05/26/24615Technologist: Ana Laura Ramon To: Report ID: [id number] -End of Report-Patient Name: SHERRIE BAUGH Acct: [id number] Unit: [id number] Page 2 Date:26-May-2024 Status:Completed Vital Signs 26-May-2024 06:31 BP Nutddvgi858az[Hg] BP Vzzoegpzj60lk[Hg] 26-May-2024 06:25 O2 SAT98% Pulse86 26-May-2024 06:20 O2 SAT98% Pulse86 26-May-2024 06:15 BP Qdymsfkl217vz[Hg] BP Maydmdppc67yi[Hg] 26-May-2024 06:15 O2 SAT98% Pulse85 26-May-2024 06:10 O2 SAT98% Pulse84 26-May-2024 06:04 Temp36.7c 26-May-2024 06:00 BP Nzbyslpl261zw[Hg] BP Hxmorbhcy30td[Hg] 26-May-2024 06:00 O2 SAT97% Pulse78 26-May-2024 05:50 O2 SAT97% Pulse82 26-May-2024 05:45 BP Wgporfjr994wt[Hg] BP Qaivkrflj70op[Hg] 26-May-2024 05:45 O2 SAT97% Pulse81 26-May-2024 05:40 O2 SAT97% Pulse82 26-May-2024 05:33 O2 GXO801% 26-May-2024 05:33 BMI44.2cm Temp36.7c O2 NYM944% Pulse84 Respiratory Rate20 BP Mixgprth626ad[Hg] BP Sbrfimbot04bt[Hg] Height5.6340688[ft_us] Lvszpd803.33741tk 26-May-2024 05:30 BP Vzfxnqdj933ya[Hg] BP Rfzbhbhaw09jr[Hg] 26-May-2024 05:30 O2 SAT99% Pulse82 26-May-2024 05:27 O2 SAT99% Pulse88 26-May-2024 05:26 O2 SPG944% Pulse81 Encounters Emergency Encounter Reason:FALL, POSS LOC, ASPIRIN Encounter Diagnosis:ESSENTIAL (PRIMARY) HYPERTENSION,SKILLED NURSING (CURRENT) USE OF ASPIRIN,STRIKING AGAINST OTH OBJECT W SUBSEQUENT FALL, INIT ENCNTR,DISP FX OF OLECRAN PRO W/O INTARTIC EXTN LEFT ULNA, INIT 26-May-2024 05:14Zs45-Ttb-9976 07:05 Grace Floridalma Gentile DO (Attending) [place] Discharge Disposition:Discharged to home or self care (routine discharge) Roxanna Rios MD-26-May-2024 [place], [place] [address]Phone: VD PHYSICIAN RECORDPatient Name: BANDAR BAUGHICDOB: 1980 Age: 43 Sex: MAcct: [id number] MR#: [id number]: Author: Blanca Mcknight MDPatient [facility] 05/26/24Report Date/Time: 05/26/24 0541 Report Status: SignedReport#: [id number]<Blanca Mcknight - Last Filed: 05/26/24 06:12>HPI-General Illness- Free Text HPI NotesHPI:43-year-old male with past medical history of hypertension, diabetes presenting to the emergencydepartment with chief complaint of fall and a left elbow injury. Patient states that he trippedover box, fell backwards onto his left elbow, hit his head. He is unsure if he lost consciousness.He does not take any anticoagulation, we taken 81 mg aspirin. This fall happened approximately 4:00a.m.. States that he came to right after. Does not had she seizure, nausea, vomiting has some milddiscomfort at the left back of his head. He denies any visual changes or confusion. His maincomplaint is his left elbow pain, he is unable to completely straighten his left elbow withoutsignificant discomfort. He states that initially he had a small amount of numbness and tinglingthis left pinky however this has since resolved. [facility]ROS[Constitutional: Negative except as documented in HPI.Eyes: Negative except as documented in HPI.CV: Negative except as documented in HPI.Resp: Negative except as documented in HPI.GI: Negative except as documented in HPI.: Negative except as documented in HPI.MSK: Negative except as documented in HPI.Skin: Negative except as documented in HPI.Neuro: Negative except as documented in HPI.Psych: Negative except as documented in HPI.]Past medical history:Pertinent in HPI, reviewedPast surgical history:Pertinent in HPI, reviewedPast social/family history:As Per HPI, reviewed[All vital signs reviewed ]Patient Name: SHRERIE BAUGH Acct: [id number] Unit: [id number] Page 1[Nursing notes reviewed and I agree]PHYSICAL EXAM:[CONSTITUTIONAL: Well-developed, well-nourished, no acute distressHEENT: Normocephalic, atraumatic. No abrasion or hematoma to the posterior of patient's head, small conjunctival hemorrhage in-patient left eye at 6:00 a.m. position pupils 2+ equal round reactive to light accommodation, no midline C-spine tenderness.HEART: Regular rhythm, no murmurs, gallops, or rubs appreciatedLUNGS: Clear bilaterally with normal effort and good air movement.GI:MSK: Swelling of the left olecranon, unable to fully straighten elbow due to significantdiscomfort, range of motion sensation in hand intact able to adduct, abduct fingers, make a fistwithout difficulty, no significant pain on palpation of shoulder, wrist, or forearm, he ambulated to the emergency department without difficulty.INTEGUMENTARY: Warm, dry, well-perfused, no rashesNEURO: Alert, awake, and oriented to person, place, and time. Normal speech and pattern. Grosslynonfocal with intact strength and sensation to bilateral upper and lower extremitiesPSYCH:normal mood and appropriate affect with good attention span and thought process]MDM:A 43-year-old male presenting to the emergency department with chief complaint of fall uncertainloss of consciousness, left elbow pain. Patient is CT [place] head criteria negative. To concernfor possible olecranon fracture verses distal radial or ulnar fracture, or elbow dislocation giventhis plan to obtain x-rays of patient's left elbow. Patient states that he has retinopathy due tohis diabetes and he gets injections in his eye, and that the subconjunctival hemorrhage was due tothat. Patient given Tylenol Motrin for his discomfort. Patient blood pressure was elevated oninitial check, however it is improving on repeat assessments. 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 manager hotel responded to it.- GeneralTime Seen by Provider: 05/26/24 05:24- Chief ComplaintChief Complaint: OtherPast Medical History - Adult- Nursing NotesStated Complaint: FALL, POSS LOC, ASPIRINAllergies/Adverse Reactions: AllergiesAllergy/AdvReac Type Severity Reaction Status Date / TimePatient Name: SHERRIE BAUGH Acct: [id number] Unit: [id number] Page 2No Known Allergies Allergy Verified 05/26/24 05:45Re- Evaluation MDM- ED CourseOrders-All:05/26/24 05:31Acetaminophen [Tylenol] 650 mg PO X1ED STAIbuprofen [Motrin] 600 mg PO X1ED STA05/26/24 05:33XR Elbow minimum 3 View Lt [RAD] StatPatient Discharge Departure- ConditionCondition: StableClinical Impression: Olecranon fracture<Floridalma Grace R - Last Filed: 05/26/24 06:47>Physical Exam- Initial Vital SignsVital Signs - First Documented: Vital Signs - First DocumentedPulse 81 05/26/24 05:26Bedside pulse oximetry/SpO2 100 05/26/24 05:26Interpretation Diagnostics- Lab Results InterpretationResults:Radiology Impressions within the last 24 hrsElbow X-Ray 05/26/24 05:55IMPRESSION:Olecranon fracture.CRITICAL RESULT:Patient Name: SHERRIE BAUGH Acct: [id number] Unit: [id number] Page 3No.COMMUNICATION:Per this written report.Drafted by Scottie Hernandez MD on 05/26/2024 6:16 AMFinal report signed by Scottie Hernandez MD on 05/26/2024 6:16 AMRe-Evaluation MDM- Free Text MDM NotesText/Dict MDM Notes:I, Dr. Grace, took over care from previous ED provider pending follow-up on x-ray imaging. X-rayreviewed by me along with corresponding radiology report which demonstrates minimally displacedolecranon fracture. Discussed case with Orthopedic surgery on-call, Dr. Miramontes, who states patientcan be placed in splint and follow-up with orthopedic surgery clinic in approximately 1 week.Posterior long-arm splint applied by HIGH DENSITY FINISHING OPERATOR, post application exam shows good placement and noneurovascular compromise to the distal extremity. Patient states he is from a different town andplans on following up with an finance specialist locally where he lives. He was provided a discof the x-rays from today and understands he needs to follow-up with orthopedic surgery clinic inapproximately 1 week. Did offer to write a prescription for pain medication but patient declined.On re-exam patient hemodynamically stable, comfortable, very well-appearing. Reviewed and discussed all results with the patient, all questions answered, patient voiced understanding and agreeablewith treatment plan. Patient to follow-up with primary care physician within 24 hours forreevaluation. Return precautions given, with specific instructions to immediately return to theemergency department if they develop any new, worsening, or persistent symptoms. Patient discharged from the emergency department in hemodynamic stable condition.- ED CourseOrders-All:05/26/24 05:31Acetaminophen [Tylenol] 650 mg PO X1ED STAIbuprofen [Motrin] 600 mg PO X1ED STA05/26/24 05:33XR Elbow minimum 3 View Lt [RAD] StatPatient Discharge Departure- ConditionCondition: Stable, Improved- Disposition Decision - Discharge)( Discharged to home: Yes)( Disposition time: 06:45- Discharge/Care PlanCounseled Regarding: Imaging studies, Need for follow-up, When to return to ED Note 1Patient Name: SHERRIE BAUGH Acct: [id number] Unit: [id number] Page 4Discharge Note:I have spoken with the patient and/or caregivers. I have explained the patient's condition,diagnoses and treatment plan based on the information available to me at this time. I have answeredthe patient's and/or caregiver's questions and addressed any concerns. The patient and/or caregivers have as good an understanding of the patient's diagnosis, condition and treatment plan as can beexpected at this point. The vital signs have been stable. The patient's condition is stable andappropriate for discharge from the emergency department.The patient will pursue further outpatient evaluation with the primary care physician or otherdesignated or consulting physician as outlined in the discharge instructions. The patient and/orcaregivers are agreeable to this plan of care and follow-up instructions have been explained indetail. The patient and/or caregivers have received these instructions in written format and haveexpressed an understanding of the discharge instructions. The patient and/or caregivers are awarethat any significant change in condition or worsening of symptoms should prompt an immediate returnto this or the closest emergency department or a call to 1.Discharge Plan- Discharge PlanReason For Visit: FALL, POSS LOC, ASPIRINCondition: Fair- InstructionsInstructions: ED Elbow FractureAdditional Instructions:- Follow up with your primary care physician within 24 hours as discussed.- If you need a physician referral, please call Mvcogjn-P-Jrlzu at ([phone]) [facility] [place] ([phone]) [phone].- Return to the nearest emergency department as needed or desired for any new, worsening, orpersistent symptoms.- If you are not established with a primary care physician you may call one of the local [facility] to schedule an appointment to establish care:[facility] Primary Care[address] [place] [address] [facility] [address] [place] [address] [facility] Primary [address] [place] [address] [place] [id number] Patient Name: SHERRIE BAUGH Acct: [id number] Unit: [id number] Page 5[facility] [place] [id number] [facility] - Primary [address] [place] [address] [place] [phone] [address] - Post-Hospital CareReferrals:Chacorta Miramontes MD [Physician *] -<Electronically signed by Blanca Mcknight MD> 05/26/24 0612<Electronically signed by Floridalma Grace DO> 05/26/24 0647Patient Name: SHERRIE BAUGH Acct: [id number] Unit: [id number] Page 6 Plan of Treatment Future Tests Future scheduled test information is unavailable Pending Tests Pending diagnostic test information is unavailable Future Visits Future appointment information is unavailable Referrals to Other Providers Reason for Referral Referral Start Date Provider Provider Contact Information Provider Address Chacorta Miramontes MD Work Phone: [phone] [employer] [facility] [address] [place] [address] Future Procedures Future procedure information is unavailable Future Medications Future medication information is unavailable Patient Instructions Instruction Admit Date ED Elbow Fracture May 26, 2024 4:2 2am
--- NOTE | 2024-08-18 08:58 | XR_ITS ---
FINAL REPORT CLINICAL HISTORY: LT elbow fx COMPARISON: 07/21/2024 FINDINGS: LEFT ELBOW 3 views were obtained. There is an ossific structure in the posterior olecranon with lucency at the base of the structure probably related to healed or healing fracture deformity. There is no joint effusion. The fracture line remains visible but the margins are smooth and more sclerotic. The joint spaces are intact. There is no soft tissue abnormality. IMPRESSION: Healed or healing fracture as above. Continued follow-up recommended to ensure complete healing. Reviewed, Interpreted and Dictated by Charlie Capone MD Transcribed by Yamilex Carson Authenticated and . [facility]
--- OUTSIDE RECORDS SUMMARY | 2024-08-18 09:07 | XMS_ITS | Clinical Summary ---
Author Organization Healthcare Address [address] [place] [address] Care Team Providers Care Rotary Slicing Machine Operator Name Role Phone Pcp, No Primary Care [...] [facility]-HIV Screening 1980 [facility]-Hepatitis C Screening 1980 [facility]-Infant/Child/Adol SDOH Screenings 1979 Diabetes: Dental Exam 10/14/1989 [...] Years) (1 of 2 - PCV) 10/14/1998 [id number] Vaccine (3 - 2023-25 season) 2023 05/16/2021, 04/17/2021 [facility]-Influenza Vaccine (#1) 2024 [facility]-Zoster Vaccines (1 of 2) 10/14/2029 [...] Name:SHERRIE COY Date of :1980 (Home) Address: [address] [place] [address] Payer ID:Not on file Group ID:Not on file Type:Indemnity Address: [address] [place] [id number] Care Teams Rotary Slicing Machine Operator Relationship Specialty Start Date End Date Pcp, [place] [address] PCP - General Family Medicine 08/28/23
== END 2024-08-18 23:59 | disposition home or self-care (01) ==
LOC: RAD 08:57
PROVIDERS: PCP Nurse Practitioner Family; Visit Provider Orthopaedic Surgery
DX: S52.032D Displaced fracture of olecranon process with intraarticular extension of left ulna, subsequent encounter for closed fracture with routine healing (principal)
CPT/HCPCS: 73080

== ENCOUNTER 2024-09-21 14:26 | Outpatient (CLI) | payer OTHER, SELFPAY ==
--- OUTSIDE RECORDS SUMMARY | 2024-05-26 03:05 | XMS_ITS | Continuity of Care Document ---
Author Organization [facility]. If a dditional information is needed, contact Health Information Management at [phone] Address [address] [place] [address] Phone Care Team Providers Care Scrap Sawyer Name Role Phone Unavailable Unavailable Unavailable Unavailable Unavailable Unavailable Unavailable Unavailable Unavailable Unavailable Unavailable Unavailable Unavailable Unavailable Unavailable Problems Fracture of olecranon Onset:26-May-2024 Roxanna Rios MD Status:Acute Allergies and Adverse Reactions No Known Allergies(Allergy) Onset: 26-May-2024 Medications acetaminophen 325 MG Oral Ta blet;650 MG X1ED Quantity:2 Roxanna Rios MD Start:35-Yce-7746Ypx:2024 ibuprofen 600 MG Oral Tablet ;600 MG X1ED Quantity:1 Roxanna Rios MD Start:59-Jhw-0881Ebq:2024 Procedures Elbow Minimum 3 View LeftResult:[place] [address] Diagnostic Imaging ReportPatient Name: SHERRIE BAUGH Acct: [id number]: 1980 Age: 43 Sex: M MR#: [id number] Date/Time: 05/26/24 0555 Admit Date/Time:Patient Status: PRE ER Ordering Physician: Ld Russell [facility] Att[facility] Physician:Accession Number(s): [id number](s): Radiology XR Elbow minimum 3 View LtCPT Code(s): 54850EXMDFLGK INDICATION: elbow pain TECHNIQUE: XR Elbow minimum [...] MD in OV>05/26/24615 Thank you for choosing [facility]'s Imaging Services Dictated By: Scottie Hernandez MDDictated Date/Time: 05/26/24615Transcribed By: Scottie Hernandez MDPatient Name: SHERRIE BAUGH Acct: [id number] Unit: [id number] Page 1Transcribed Date/Time: 05/26/24615Technologist: Ana Laura Ramon To: Report ID: [id number] -End of Report-Patient Name: SHERRIE BAUGH Acct: [id number] Unit: [id number] Page 2 Date:26-May-2024 Status:Completed Vital Signs 26-May-2024 06:31 BP Yvybzdbk531nk[Hg] BP Uwhcsbmfk00ds[Hg] 26-May-2024 06:25 O2 SAT98% Pulse86 26-May-2024 06:20 O2 SAT98% Pulse86 26-May-2024 06:15 BP Vavahupt633ob[Hg] BP Iogiwjhoy33wp[Hg] 26-May-2024 06:15 O2 SAT98% Pulse85 26-May-2024 06:10 O2 SAT98% Pulse84 26-May-2024 06:04 Temp36.7c 26-May-2024 06:00 BP Nhqeiwyy276eh[Hg] BP Bkjzbvlsc03to[Hg] 26-May-2024 06:00 O2 SAT97% Pulse78 26-May-2024 05:50 O2 SAT97% Pulse82 26-May-2024 05:45 BP Fllnhdal083da[Hg] BP Nbuxssqnm84ct[Hg] 26-May-2024 05:45 O2 SAT97% Pulse81 26-May-2024 05:40 O2 SAT97% Pulse82 26-May-2024 05:33 O2 QBJ807% 26-May-2024 05:33 BMI44.2cm Temp36.7c O2 BKW895% Pulse84 Respiratory Rate20 BP Yhgyveiy675re[Hg] BP Dfknbxndn60ir[Hg] Height5.3872443[ft_us] Buxfnt364.20718ip 26-May-2024 05:30 BP Ascbkmhv265hi[Hg] BP Bkyvwxqkg97mt[Hg] 26-May-2024 05:30 O2 SAT99% Pulse82 26-May-2024 05:27 O2 SAT99% Pulse88 26-May-2024 05:26 O2 XUM072% Pulse81 Encounters Emergency Encounter Reason:FALL, POSS LOC, ASPIRIN Encounter Diagnosis:ESSENTIAL (PRIMARY) HYPERTENSION,DINING ROOM HOSTESS (CURRENT) USE OF ASPIRIN,STRIKING AGAINST OTH OBJECT W SUBSEQUENT FALL, INIT ENCNTR,DISP FX OF OLECRAN PRO W/O INTARTIC EXTN LEFT ULNA, INIT 26-May-2024 05:99Tz69-Smn-9666 07:05 Grace Floridalma Gentile DO (Attending) [place] Discharge Disposition:Discharged to home or self care (routine discharge) Roxanna Rios MD-26-May-2024 [place], [place] [address]Phone: FT PHYSICIAN RECORDPatient Name: BANDAR BAUGHICDOB: 1980 Age: 43 Sex: MAcct: [id number] MR#: [id number]: Author: Blanca Mcknight MDPatient [facility]: 05/26/24Report Date/Time: 05/26/24 0541 Report Status: SignedReport#: [id number]<Blanca Mcknight - Last Filed: 05/26/24 06:12>HPI-General Illness- [...] resolved. [facility].ROS[Constitutional: Negative except as documented in HPI.Eyes: [...] HPI, reviewed[All vital signs reviewed ]Patient Name: SHERRIE BAUGH Acct: [id number] Unit: [id number] Page 1[Nursing notes reviewed and I agree]PHYSICAL [...] consciousness, left elbow pain. Patient is CT [place] head criteria negative. To concernfor possible olecranon [...] aboutwhat happened tonight and how his manager heavy duty responded to it.- GeneralTime Seen by Provider: 05/26/24 05:24- Chief ComplaintChief Complaint: OtherPast Medical History - Adult- Nursing NotesStated Complaint: FALL, POSS LOC, ASPIRINAllergies/Adverse Reactions: AllergiesAllergy/AdvReac Type Severity Reaction Status Date / TimePatient Name: SHERRIE BAUGH Acct: [id number] Unit: [id number] Page 2No Known Allergies Allergy Verified 05/26/24 [...] 05:55IMPRESSION:Olecranon fracture.CRITICAL RESULT:Patient Name: SHERRIE BAUGH Acct: [id number] Unit: [id number] Page 3No.COMMUNICATION:Per this written report.Drafted by Socttie Hernandez MD on 05/26/2024 6:16 AMFinal report [...] approximately 1 week.Posterior long-arm splint applied by MANAGER INTERMEDIATE, post application exam shows good placement and noneurovascular compromise to the distal extremity. Patient states he is from a different town andplans on following up with an professional services specialist locally where he lives. He was [...] ED Note 1Patient Name: SHERRIE BAUGH Acct: [id number] Unit: [id number] Page 4Discharge Note:I have spoken with the [...] you need a physician referral, please call Ygkqdyb-N-Jcqvl at ([phone] [facility] [place] ([phone]) [phone].- Return to the nearest emergency department as needed or desired for any new, worsening, orpersistent symptoms.- If you are not established with a primary care physician you may call one of the [facility] to schedule an appointment to establish care:[facility] Primary Care[address] [place] [address] [facility] Primary [address] [place] [address] [facility] [address] [place] [address] [place] [phone] Patient Name: SHERRIE BAUGH Acct: [id number] Unit: [id number] Page 5[facility] [place] [id number] [facility] - Primary [address] [place] [address] [place] [phone] [address] - Post-Hospital CareReferrals:Chacorta Miramontes MD [Physician *] -<Electronically signed by Blanca Mcknight MD> 05/26/24 0612<Electronically signed by Floridalma Grace DO> 05/26/24 0647Patient Name: SHERRIE BAUGH Acct: [id number] Unit: [id number] Page 6 Plan of Treatment Future Tests Future scheduled test information is unavailable Pending Tests Pending diagnostic test information is unavailable Future Visits Future appointment information is unavailable Referrals to Other Providers Reason for Referral Referral Start Date Provider Provider Contact Information Provider Address Chacorta Miramontes MD Work Phone: [phone] [address] [facility] [address] [place] [address] Future Procedures Future procedure information is unavailable Future Medications Future medication information is unavailable Patient Instructions Instruction Admit Date ED Elbow Fracture May 26, 2024 4:2 2am
--- NOTE | 2024-09-21 14:27 | XR_ITS ---
FINAL REPORT CLINICAL HISTORY: left elbow pain COMPARISON: 07/21/2024 FINDINGS: Four views of the left elbow were obtained. There is a vertical lucency through the posterior olecranon, unchanged from prior exam. Fracture is subacute or chronic. No joint effusion is seen. The joint spaces are intact. There is not soft tissue abnormality. IMPRESSION: Subacute or chronic fracture of the posterior olecranon. Reviewed, Interpreted and Dictated by Charlie Capone MD Transcribed by Kelly Huff Authenticated and [facility]
--- OUTSIDE RECORDS SUMMARY | 2024-09-21 14:28 | XMS_ITS | Clinical Summary ---
Author Organization Healthcare Address [address] [place] [address] Care Team Providers Care Refrigeration Technician Name Role Phone Pcp, No Primary Care [...] time each day. 45 mL 1 4 Active insulin lispro (Admelog, HumaLOG) 100 UNIT/ML [...] circulatory complications 03/31/2023 Regular astigmatism, bilateral 03/31/2023 Encounters Date Type Department Care Team Description 08/31/2024 [facility] [address] [place] [address] Meg Montana, MARKETING SERVICES VICE PRESIDENT Type 1 diabetes mellitus with other specified complication (CMS/HCC) from Last 3 Months Social History Tobacco Use Types Packs/Day Years [...] Years) (1 of 2 - PCV) 10/14/1998 [id number] Vaccine (3 - 2023- season) 2023 05/16/2021, 04/17/2021 [facility]-Influenza Vaccine (#1) [...] [employer] Care Teams Refrigeration Technician Relationship Specialty Start Date End Date Pcp, Adele [address] [place] [address] PCP - General Family Medicine 08/28/23
--- OUTSIDE RECORDS SUMMARY | 2024-09-21 14:28 | XMS_ITS | Encounter Summary ---
Author Organization Healthcare Address [address] [place] [address] Care Team Providers Care Lead Manufacturing Technician Name Role Phone Pcp, No Primary Care Provider Unavailabl e Reason for Visit * Reason Comments Med Refill Encounter Details Date Type Department Care Team (Late st Contact Info) Description 08/31/2024 Refill [facility] End[facility] [address] [place] [address] Meg Montana, SAUSAGE TIER [address] [facility] [address] [place] [address] Type 1 diabetes mellitus with other specified complication (CMS/HCC) Social History Tobacco Use Types Packs/Day Years Used Date Smoking Tobacco: Never Smokeless Tobacco: Never Alcohol Use Standard Drinks/Week Comments Never 0 (1 standard drink = 0.6 oz pur e alcohol) Sex and Gender Information Value Date Recorded Sex Assigned at Not on file Legal Sex Male 10:39 AM EST Gender Identity Not on file Sexual Orientation Not on file documented as of this encounter Miscellaneous Notes * Telephone Encounter - Katherine Cheung - 08/31/2024 2:13 PM EDT Refill request does not meet protocol. Sending to clinic for review. Additional info: Appointment compliance - Patient has not followed up in clinic as requested. Please review for scheduling and if refills are appropriate. documented in this encounter Plan of Treatment Not on file documented as of this encounter Visit Diagnoses Diagnosis Type 1 diabetes mellitus with other specified complication (CMS/HCC) documented in this encounter Additional Health Concerns Assessment Noted Time A Body Mass Index follow-up plan has been documented for the patient 08/28/2023 5:40 PM EDT documented as of this encounter Care Teams Lead Manufacturing Technician Relationship Specialty Start Date End Date Pcp, [place] [address] PCP - General Family Medicine 08/28/23 documented as of this encounter
== END 2024-09-21 23:59 | disposition home or self-care (01) ==
LOC: RAD 14:26
PROVIDERS: PCP Nurse Practitioner Family; Visit Provider Orthopaedic Surgery
DX: S52.032D Displaced fracture of olecranon process with intraarticular extension of left ulna, subsequent encounter for closed fracture with routine healing (principal); X58.XXXD Exposure to other specified factors, subsequent encounter
CPT/HCPCS: 73080

== ENCOUNTER 2025-01-24 14:07 | Emergency (ER) | payer OTHER, SELFPAY ==
[2025-01-24 14:09] VITALS: BP 169/85; PULSE 85; RESP 16; TEMP 36.5; O2SAT 99; BMI 45.4
--- NOTE | 2025-01-24 16:06 | PC.NURSE ---
provider at bedside, call light within reach
--- NOTE | 2025-01-24 16:28 | [facility].EDGENADL ---
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 See Rx Instructions .MEDSUPPLY Qty: 1 2RF Rx Instructions: As directed insulin lispro 100 unit/mL insulin pen 1 unit SQ USEASDIRECTD furosemide [Lasix] 20 mg tablet 20 mg PO DAILY Qty: 90 2RF aspirin [Adult Low Dose Aspirin] 81 mg tablet,delayed release (DR/EC) 81 mg PO DAILY Qty: 90 3RF bisoprolol fumarate 5 mg tablet 5 mg PO DAILY Qty: 90 3RF (DME) Dexcom G6 Sensor Device See Rx Instructions .ROUTE .COMPLEX Qty: 3 11RF Dose Instruction: USE DIRECTED TO TEST BLOOD GLUCOSE LEVEL Rx Instructions: USE DIRECTED TO TEST BLOOD GLUCOSE LEVEL (DME) Dexcom G6 Transmitter Device See Rx Instructions .ROUTE .COMPLEX Qty: 1 3RF Dose Instruction: USE DIRECTED TO TEST BLOOD GLUCOSE LEVEL Rx Instructions: USE DIRECTED TO TEST BLOOD GLUCOSE LEVEL cholecalciferol (vitamin D3) 50 mcg (2,000 unit) capsule 50 mcg PO DAILY Qty: 90 3RF (DME) insulin syringe-needle U-100 0.3 mL 30 syringe See Rx Instructions .Route Qty: 100 3RF Rx Instructions: As directed lisinopril 5 mg tablet 5 mg PO DAILY Qty: 90 3RF pravastatin 20 mg tablet 20 mg PO DAILY Qty: 90 3RF spironolactone 25 mg tablet 25 mg PO Q OTHER DAY Qty: 45 3RF albuterol sulfate [Ventolin HFA] 90 mcg/actuation HFA aerosol inhaler 2 puff inhalation Q6H Qty: 18 11RF Venofer 200 mg iron/10 mL solution 200 mg IV WEEKLY Rx Instructions: administer over 30 mins (DME) Dexcom G7 [employer] Misc See Rx Instructions .MEDSUPPLY Qty: 3 11RF Rx Instructions: As directed (DME) Dexcom G7 Sensor Device See Rx Instructions .MEDSUPPLY Qty: 3 11RF Rx Instructions: As directed insulin glargine 100 unit/mL solution 30 unit SQ BID Qty: 20 11RF testosterone cypionate 200 mg/mL oil 100 mg IM WEEKLY Qty: 10 0RF Referrals Follow up/Referrals: Owen Díaz DO [Primary Care Provider, [facility]] - See instructions Activity Restrictions/Add. Instructions Additional Instructions/Restrictions: You were seen today in the emergency department for evaluation of a rash that has been present for 3 weeks and has spread throughout your body. You were given a prescription for Lotrisone cream to be used once or twice daily. You were also given a prescription for cetirizine to be taken daily, and you may take Benadryl as tolerated. Be mindful that the Lotrisone cream does contain a steroid, so continued use can cause blood sugar spikes. Please follow-up with your primary care provider to discuss this ED visit and these medications. Return to the emergency department if you have any worsening symptoms such as rash with high fever, uncontrolled blood sugar, or any other emergent medical complaint or concern. Clinical Impressions Clinical Impression: Viral exanthem Eczema Qualifiers: Eczema type: unspecified Qualified Code(s): L30.9 - Dermatitis, unspecified Instructions Patient Instructions: Eczema Print Language Print Language: Scottish Discharge ED Provider: Valentin Joy Adult HPI General Chief complaint: Skin/Abscess/Foreign Body Stated complaint: swelling/painful rash on legs sent by [facility] Time Seen by Provider: 01/24/25 16:04 Mode of Arrival: Ambulatory Source of Information: Patient Description of Symptoms (Recalled from ER Triage Doc. by RN): Patient states he has had a red itchy pustule filled rash for 3 weeks on his legs, he has tried putting hydrocortisone cream on them with little relief. Patient states rash has moved to his groin and trunk and arms. History of Present Illness HPI narrative: Patient is a pleasant 44-year-old male who presents to the emergency department with complaints of a rash. Patient states the rash temple and itches and originally presented about 3 weeks ago and was on his legs at first. He states that the rash would flareup and then calm down. Patient states the rash began to spread upward, being in his groin and into his arms. Patient states that as the rash climbed up into his upper body. States the rash continued to flareup and then decrease. Patient states that he has tried steroid cream and has gotten relief from that but he feels like he has to keep applying it over and over. Patient denies any fever, other illness, or any new diagnosis; denies chest pain, shortness of breath, abdominal pain. 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 #1 ea 09/18/21 Ventolin HFA 90 mcg/actuation 2 puff inhalation Q6H Asthma #18 04/13/24 aerosol inhaler (albuterol sulfate) grams aspirin 81 mg tablet,delayed 81 mg PO DAILY #90 tabs 04/13/24 release (Adult Low Dose Aspirin) bisoprolol fumarate 5 mg tablet 5 mg PO DAILY #90 tabs 04/13/24 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 sensor (Dexcom G6 #3 ea 04/13/24 Sensor device) 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 transmitter (Dexcom #1 ea 04/13/24 G6 Transmitter device) cholecalciferol (vitamin D3) 50 50 mcg PO DAILY #90 caps 04/13/24 mcg (2,000 unit) capsule insulin syringe-needle U-100 0.3 #100 ea 04/13/24 mL 30 lisinopril 5 mg tablet 5 mg PO DAILY #90 tabs 04/13/24 pravastatin 20 mg tablet 20 mg PO DAILY #90 tabs 04/13/24 spironolactone 25 mg tablet 25 mg PO Q OTHER DAY #45 tabs 04/13/24 iron sucrose 200 mg iron/10 mL 200 mg (10 mL) IV WEEKLY 5 doses 05/15/24 intravenous solution (Venofer) 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 sensor (Dexcom G7 #3 ea 07/01/24 Sensor device) 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,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,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 #3 ea 07/01/24 (Dexcom G7 [employer] 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) insulin glargine 100 unit/mL 30 unit (0.3 mL) SQ BID #20 mL 09/02/24 subcutaneous solution furosemide 20 mg tablet (Lasix) 20 mg PO DAILY #90 tabs 11/15/24 testosterone cypionate 200 mg/mL 100 mg (0.5 mL) IM WEEKLY #10 mL 01/04/25 intramuscular oil cetirizine 10 mg tablet (All Day 10 mg PO DAILY #30 tabs 01/24/25 Allergy (cetirizine)) clotrimazole-betamethasone 1 1 applic topical BID 2 weeks #45 01/24/25 %-0.05 % topical cream grams Allergies Allergy/AdvReac Type Severity Reaction Status Date / Time rodriguez pepper (green pepper) Allergy Unknown Hives Verified 01/24/25 13:13 peach Allergy Unknown Hives Verified 01/24/25 13:13 ibuprofen Allergy trouble Verified 01/24/25 13:13 breathing [facility] Disclaimer: The information contained in this section may have been updated after the patient was seen, as this information can be updated by other users. Medical History Screening for HIV (human immunodeficiency virus) Encounter to establish care Encounter for hepatitis C screening test for low risk patient History of retinopathy Dehydration Lightheaded Edema of both lower extremities Family history of blood clots Dizziness Family history of ischemic heart disease and other diseases of the circulatory system BMI 45.0-49.9, adult Asthma HLD (hyperlipidemia) HTN (hypertension) Hypoglycemia Neuropathy Autism Diabetes mellitus Hyperglycemia Surgical History No significant past surgical history Family History Other Family history of cancer Family history of diabetes mellitus Family history of heart disease Social History Smoking Status: Never smoker alcohol intake: never substance use type: denies use current occupational status: employed Travel in the last 8 weeks?: None household members: spouse and family housing: house Have you lived/traveled outside [place] in past 30 days?: No Contact w/someone who lives/traveled outside [place] past 30 days?: No Exposure to someone with infectious disease in past 14 days?: No Do you have a fever (greater than 100.4 F or 38 C)?: No Have you tested positive for COVID-19?: No Exposed to someone with COVID-19 in past 14 days?: No Do you have a sore throat?: No Do you have a cough?: No Do you have any weakness?: No Do you have any diarrhea?: No Are you experiencing any unusual bleeding?: No Do you have any muscle aches/pain?: No Do you have any abdominal pain?: No Are you experiencing loss of taste or smell?: No Other Medical History Have you received the Flu Vaccine for this season: Yes Have you received the Pneumonia Vaccine: No ROS Obtained: Yes Systems reviewed as appropriate & no additional complaints except as documented Physical Exam General General appearance: alert, in no apparent distress and obese Head Head exam: atraumatic and normocephalic Eye Eye exam: Present normal appearance, PERRL and EOMI Neck Neck exam: Present normal inspection and trachea midline Chest Chest inspection: Present normal inspection and symmetric chest wall rise; Absent tenderness Respiratory Respiratory exam: Present normal lung sounds bilaterally; Absent respiratory distress, wheezes or stridor Cardiovascular Cardiovascular exam: Present regular rate and normal rhythm Abdominal Exam Abdominal exam: Present soft and normal bowel sounds; Absent distention, tenderness or guarding Extremities Exam Extremities exam: Present normal inspection and full ROM Back Exam Back exam: Present full ROM Neurological Exam Neurological exam: Present alert and oriented X3 Psychiatric Psychiatric exam: Present normal affect and normal mood Skin Skin exam: Present warm, dry, rash and erythema Expanded Skin Exam Distribution: generalized, chest, abdomen, genitals, LUE, LLE, RUE and RLE Description: Present erythematous and macular Medical Decision Making Medical Records Screening: Per USPSTF and CDC recommendations, given the prevalence of disease in our region, it is our hospital?s policy to screen for HIV and viral Hepatitis for all patients aged 18 and over and those with ongoing risk factors. Mihir Inquiry Pt receiving controlled substance: No Vital Signs: 01/24/25 14:09 01/24/25 16:30 01/24/25 17:00 Temperature 97.7 F Temperature Source Oral Pulse Rate 77 85 Pulse Rate [Right Brachial] 85 Respiratory Rate 16 Blood Pressure 145/77 H 136/70 Blood Pressure [Right Arm] 169/85 H Blood Pressure Mean [Right Arm] 113 Blood Pressure Source [Right Arm] Automatic Cuff Blood Pressure Position [Right Arm] Sitting 02 Sat by Pulse Oximetry 99 98 96 Oxygen Delivery Method Room Air Room Air Room Air Orders (Tests/Meds): ED MEDICATIONS Generic Name Dose Route Start Last Admin Trade Name Freq PRN Reason Stop Dose Admin Betamethasone/Clotrimazole 0 gm 01/24/25 21:00 Clotrimazole W/Betamethasone Cream 15gm Tube TP 02/23/25 20:59 BID ABAD Discontinued Medications Generic Name Dose Route Start Last Admin Trade Name Sandip PRN Reason Stop Dose Admin Dexamethasone 8 mg 01/24/25 16:27 01/24/25 16:42 Dexamethasone 4mg Tablet PO 01/24/25 16:28 8 mg ONCE ONE Administration Diphenhydramine HCl 25 mg 01/24/25 17:06 Diphenhydramine 25mg Capsule PO 01/24/25 17:07 ONCE ONE Loratadine 10 mg 01/24/25 16:27 01/24/25 16:55 Loratadine 10mg Tablet PO 01/24/25 16:28 10 mg ONCE ONE Administration Medical Decision Narrative: In summary patient is an obese 44-year-old male who presents to the emergency department for evaluation of rash. Patient is hemodynamically stable upon arrival, afebrile. Patient's physical exam is remarkable for macular erythema on legs and arms bilaterally with patient complaining of the rash in his groin as well. The rash is not fluctuant. Differential diagnosis includes cellulitis, eczema, contact dermatitis. Initial workup will be conducted with clinical exam and thorough HPI. Initial interventions include cetirizine and Benadryl at time of discharge. Upon repeat evaluation patient's repeat exam has not changed after 1 dose of cetirizine during ED course. Given the patient's history, clinical presentation, and thorough exam, plan is for him to be discharged to home to use Lotrisone cream along with cetirizine and Benadryl as tolerated. Patient verbalized understanding of and is amenable to this plan of care. Patient is alert and oriented, nontoxic and afebrile, with GCS 15; patient is stable for discharge at this time. Return precautions discussed and discharge instructions.. Critical Care Critical Care Time Critical Care Time: No
[2025-01-24 16:30] VITALS: BP 145/77; PULSE 77; O2SAT 98
[2025-01-24] MEDS: DEXAMETHASONE 4MG TABLET 8 MG PO (16:42)
[2025-01-24] MEDS: LORATADINE 10MG TABLET 10 MG PO (16:55)
[2025-01-24 17:00] VITALS: BP 136/70; PULSE 85; O2SAT 96
[2025-01-24 17:47] VITALS: BP 119/65; PULSE 62; RESP 18; TEMP 36.7; O2SAT 95
== END 2025-01-24 17:48 | disposition home or self-care (01) ==
PROVIDERS: Emergency Provider Emergency Medicine; PCP Internal Medicine
DX: L30.9 Dermatitis, unspecified (principal)
CPT/HCPCS: 99283; J8540